=== PATIENT | male | born 1955 | race Caucasian/White ===

== ENCOUNTER 2020-05-25 15:47 | Inpatient (IN) | payer OTHER ==
--- NOTE | 2020-05-25 16:17 | ED ---
General Adult HPI - General Chief complaint: Extremity Injury, Lower Stated complaint: Leg Pain Time Seen by Provider: 05/25/20 15:49 Source: patient Mode of arrival: EMS Limitations: physical limitation - History of Present Illness Initial comments: Patient presents the ED by ambulance for evaluation. Patient states that he has had right knee pain ever since he fell after being pushed over by his neighbor's dog a little over 2 months ago. Patient states that he has been ambulatory with a walker since then. Patient states that his right knee pain is currently 1/10 in severity. Patient states that his pain is worse with ambulation and with extension at his right knee. Patient is noted to have bilateral lower extremity edema on examination. Patient states that he has been unaware that he has had lower extremity edema. Patient denies any other injury or site of pain. Patient denies fever or chills, headache, focal neuro deficit, neck/back/upper extremity/hip pain, chest pain, dyspnea, palpitations, dizziness, nausea/vomiting/diarrhea, abdominal pain, urinary symptoms, decreased urine output, thigh or calf pain, or any other symptoms or complaints. Patient states that he does not see a physician regularly. - Related Data Allergies Allergy/AdvReac Type Severity Reaction Status Date / Time Fish Containing Products AdvReac Nausea & Verified 05/25/20 15:56 [Fish] Vomiting Review of Systems ROS Statement: Those systems with pertinent positive or pertinent negative responses have been documented in the HPI. ROS Other: All systems not noted in ROS Statement are negative. Past Medical History Past Medical History: No Reported History History of Any Multi-Drug Resistant Organisms: None Reported Past Surgical History: Hernia Repair Past Psychological History: No Psychological Hx Reported Smoking Status: Current every day smoker Past Alcohol Use History: Occasional Past Drug Use History: None Reported General Exam Limitations: physical limitation General appearance: alert, in no apparent distress Head exam: Present: atraumatic, normocephalic Eye exam: Present: normal appearance, PERRL, EOMI ENT exam: Present: mucous membranes moist Neck exam: Present: other (Trachea is in midline). Absent: tenderness Respiratory exam: Present: normal lung sounds bilaterally. Absent: respiratory distress, wheezes, rales, rhonchi Cardiovascular Exam: Present: regular rate, normal rhythm, normal heart sounds, other (Normal radial and DP pulses bilaterally) GI/Abdominal exam: Present: soft. Absent: distended, tenderness, guarding Extremities exam: Present: other (2+ bilateral lower pitting edema; negative Homans sign bilaterally; pelvis is stable and nontender; patient has full range of motion at bilateral hips; patient has no right knee swelling, tenderness or deformity on examination; patient has no right knee laxity on exam). Absent: tenderness, calf tenderness Back exam: Absent: tenderness Neurological exam: Present: alert, oriented X3. Absent: motor sensory deficit Psychiatric exam: Present: normal affect, normal mood Skin exam: Present: warm, dry, intact, normal color Course Vital Signs 05/25/20 05/25/20 15:49 17:00 Temperature 100 F H Pulse Rate 97 70 Respiratory 16 18 Rate Blood Pressure 154/99 140/90 O2 Sat by Pulse 97 96 Oximetry - Reevaluation(s) Reevaluation #1: 05/25/20 17:35 Patient denies development of any new pain or symptoms while in the ED. Patient remains alert and breathing comfortable. Patient is aware of his test results, and he feels comfortable going home at this time. Patient was counseled about lower extremity edema and right knee pain (rest, ice, compression, elevation, analgesics). Patient was instructed to follow up closely with a primary care provider, as well as an orthopedic surgeon (given his continued knee pain). Patient feels comfortable with this plan. EKG Findings - EKG Comments: EKG Findings:: Normal sinus rhythm, ventricular rate of 86 bpm, no ectopy, normal [place] and QRS intervals, normal QT interval, normal axis, no ST or T-wave abnormality Medical Decision Making - Medical Decision Making Patient's right knee x-rays are negative. Patient's labs are fairly unremarkable. I suspect that the patient's lower extremity edema is likely dependent and secondary to venous insufficiency. Patient was advised to seek close outpatient follow-up with a PCP, as well as an orthopedic surgeon. ED RN to apply right knee immobilizer prior to patient's discharge from the ED. Patient states that he has a walker at home, which he will use. - Lab Data Result diagrams: 05/25/20 16:21 05/25/20 16:21 Lab Results 05/25/20 05/25/20 05/25/20 Range/Units 16:21 16:21 16:21 WBC 11.9 H (3.8-10.6) k/uL RBC 4.99 (4.30-5.90) m/uL Hgb 16.4 (13.0-17.5) gm/dL Hct 49.2 (39.0-53.0) % MCV 98.6 (80.0-100.0) fL MCH 32.9 (25.0-35.0) pg MCHC 33.3 (31.0-37.0) g/dL RDW 13.7 (11.5-15.5) % Plt Count 191 (150-450) k/uL Neutrophils % 81 % Lymphocytes % 10 % Monocytes % 6 % Eosinophils % 2 % Basophils % 0 % Neutrophils # 9.6 H (1.3-7.7) k/uL Lymphocytes # 1.2 (1.0-4.8) k/uL Monocytes # 0.7 (0-1.0) k/uL Eosinophils # 0.2 (0-0.7) k/uL Basophils # 0.0 (0-0.2) k/uL PT 10.4 (9.0-12.0) sec INR 1.0 (<1.2) APTT 27.8 (22.0-30.0) sec Sodium 136 L (137-145) mmol/L Potassium 4.0 (3.5-5.1) mmol/L Chloride 103 (98-107) mmol/L Carbon Dioxide 27 (22-30) mmol/L Anion Gap 6 mmol/L BUN 12 (9-20) mg/dL Creatinine 0.55 L (0.66-1.25) mg/dL Est GFR (CKD-EPI)AfAm >90 (>60 ml/min/1.73 sqM) Est GFR (CKD-EPI)NonAf >90 (>60 ml/min/1.73 sqM) Glucose 98 (74-99) mg/dL Calcium 9.0 (8.4-10.2) mg/dL Total Bilirubin 1.1 (0.2-1.3) mg/dL AST 21 (17-59) U/L ALT 8 (4-49) U/L Alkaline Phosphatase 81 (38-126) U/L Troponin I (0.000-0.034) ng/mL NT-Pro-B Natriuret Pep pg/mL Total Protein 6.7 (6.3-8.2) g/dL Albumin 3.7 (3.5-5.0) g/dL 05/25/20 05/25/20 Range/Units 16:21 16:21 WBC (3.8-10.6) k/uL RBC (4.30-5.90) m/uL Hgb (13.0-17.5) gm/dL Hct (39.0-53.0) % MCV (80.0-100.0) fL MCH (25.0-35.0) pg MCHC (31.0-37.0) g/dL RDW (11.5-15.5) % Plt Count (150-450) k/uL Neutrophils % % Lymphocytes % % Monocytes % % Eosinophils % % Basophils % % Neutrophils # (1.3-7.7) k/uL Lymphocytes # (1.0-4.8) k/uL Monocytes # (0-1.0) k/uL Eosinophils # (0-0.7) k/uL Basophils # (0-0.2) k/uL PT (9.0-12.0) sec INR (<1.2) APTT (22.0-30.0) sec Sodium (137-145) mmol/L Potassium (3.5-5.1) mmol/L Chloride (98-107) mmol/L Carbon Dioxide (22-30) mmol/L Anion Gap mmol/L BUN (9-20) mg/dL Creatinine (0.66-1.25) mg/dL Est GFR (CKD-EPI)AfAm (>60 ml/min/1.73 sqM) Est GFR (CKD-EPI)NonAf (>60 ml/min/1.73 sqM) Glucose (74-99) mg/dL Calcium (8.4-10.2) mg/dL Total Bilirubin (0.2-1.3) mg/dL AST (17-59) U/L ALT (4-49) U/L Alkaline Phosphatase (38-126) U/L Troponin I <0.012 (0.000-0.034) ng/mL NT-Pro-B Natriuret Pep 405 pg/mL Total Protein (6.3-8.2) g/dL Albumin (3.5-5.0) g/dL - Radiology Data Radiology results: image reviewed (Chest x-ray is negative; right knee x-rays show osteoporosis, but no acute fracture or dislocation) Disposition Clinical Impression: Right knee pain, Lower extremity edema Disposition: HOME SELF-CARE Condition: Stable Instructions (If sedation given, give patient instructions): Knee Pain (ED), Leg Edema (ED) Additional Instructions: Return to the ER immediately should you develop new or worsening pain, a fever, chest pain, shortness of breath, vomiting, feeling dizzy or faint, or new or worsening symptoms. Follow up closely with a primary care provider, as well as an orthopedic surgeon. Is patient prescribed a controlled substance at d/c from ED?: No Referrals: Lucy Mack MD [REFERRING] - 1-2 days None,Stated [Primary Care Provider] - 1-2 days Aamir Barbour DO [Medical Doctor] - 1-2 days Time of Disposition: 17:45
--- NOTE | 2020-05-25 16:32 | XR ---
EXAMINATION TYPE: XR chest 1V portable DATE OF EXAM: 05/25/2020 COMPARISON: NONE HISTORY: Leg pain chest pain TECHNIQUE: FINDINGS: Heart and mediastinum are normal. Lungs are clear. Diaphragm is normal. Bony thorax appears normal. IMPRESSION: Normal chest.
--- NOTE | 2020-05-25 16:34 | XR ---
EXAMINATION TYPE: XR knee 4V RT DATE OF EXAM: 05/25/2020 COMPARISON: NONE HISTORY: Fall. Leg pain TECHNIQUE: 4 views FINDINGS: There is osteopenia around the knee joint. I see no fracture nor dislocation. There is no s ign of joint effusion. 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 No fracture seen.
[2020-05-25 16:35] LABS: Basophils % (A) 0 %; Eosinophils # (A) 0.2 k/uL (0-0.7); Eosinophils % (A) 2 %; HCT 49.2 % (39.0-53.0); HGB 16.4 gm/dL (13.0-17.5); Lymphocytes # (A) 1.2 k/uL (1.0-4.8); Lymphocytes % (A) 10 %; MCH 32.9 pg (25.0-35.0); MCHC 33.3 g/dL (31.0-37.0); MCV 98.6 fL (80.0-100.0); Mean Platelet Volume 6.6; Monocytes # (A) 0.7 k/uL (0-1.0); Monocytes % (A) 6 %; Neutrophils # (A) 9.6 k/uL (1.3-7.7); Neutrophils % (A) 81 %; Platelet Count 191 k/uL (150-450); RBC 4.99 m/uL (4.30-5.90); RDW 13.7 % (11.5-15.5); WBC 11.9 k/uL (3.8-10.6)
[2020-05-25 16:53] LABS: ALT 8 U/L (4-49); AST 21 U/L (17-59); African American GFR (CKD) >90 (>60 ml/min/1.73 sqM); Albumin 3.7 g/dL (3.5-5.0); Alkaline Phosphatase 81 U/L (38-126); Anion Gap 6 mmol/L; Blood Urea Nitrogen 12 mg/dL (9-20); Carbon Dioxide 27 mmol/L (22-30); Chloride 103 mmol/L (98-107); Glucose 98 mg/dL (74-99); Non-African American GFR(CKD) >90 (>60 ml/min/1.73 sqM); Sodium 136 mmol/L (137-145); Total Bilirubin 1.1 mg/dL (0.2-1.3); Total Protein 6.7 g/dL (6.3-8.2)
[2020-05-25 17:08] LABS: Partial Thromboplastin Time 27.8 sec (22.0-30.0); Prothrombin Time 10.4 sec (9.0-12.0)
[2020-05-25] MEDS: ACETAMINOPHEN TAB 325 MG TAB PO PRN (20:54)
[2020-05-26] MEDS: HEPARIN SODIUM,PORCINE 5,000 UNIT/ML 1 ML VIAL SQ SCH ×4 (00:32→23:11)
--- NOTE | 2020-05-26 05:29 | P.HPIM ---
History of Present Illness H&P Date: 05/25/20 The patient is a 65-year-old male with no known PMH who presented to the ED with complaints of right knee pain. The patient is currently homeless and has been staying at a friend's house, living in his garage and occasionally in the main house. He reports that roughly 2 months ago, his friends dog knocked him over, causing the fall and hurt his knee, and that he has not been able to walk since. He was previously using a cane, though is unable to walk even with assistance now. He reports no pain at rest, though reports significant 8-10 out of 10 pain with movement. Reports that since he has not been able to get around, he has been having a really difficult time with food and taking care of himself. He also feels extremely weak. He otherwise denied any additional complaints. Denied weakness of the legs, numbness, or tunneling. Denied back pain. Denied chest pain, shortness of breath, fever, chills, nausea, vomiting, or abdominal pain. Denied urinary complaints. In the emergency room, an EKG revealed a normal sinus rhythm at 86 bpm with no acute ST/T-wave changes noted as reviewed by me. A knee x-ray revealed osteoporosis with no fractures. Chest x-ray was unremarkable. Laboratory evaluation revealed a BP count of 11.9, hemogram and 16.4, platelets 191, sodium 136, potassium 4.0, the 112, creatinine 0.55, troponin less than 0.012, proBNP 405. Review of Systems Pertinent positives and negatives as discussed in HPI, a complete review of s ystems was performed and all other systems are negative. Past Medical History Past Medical History: No Reported History History of Any Multi-Drug Resistant Organisms: None Reported Past Surgical History: Hernia Repair Past Psychological History: No Psychological Hx Reported Smoking Status: Current every day smoker Past Alcohol Use History: Occasional Past Drug Use History: None Reported Medications and Allergies Home Medications Medication Instructions Recorded Confirmed Type No Known Home Medications 05/25/20 05/25/20 History Allergies Allergy/AdvReac Type Severity Reaction Status Date / Time Fish Containing Products AdvReac Nausea & Verified 05/25/20 18:42 [Fish] Vomiting Physical Exam Vitals: Vital Signs Temp Pulse Pulse Resp BP BP Pulse Ox 05/25/20 20:21 98.5 F 93 18 165/89 95 05/25/20 18:33 98.9 F 05/25/20 18:21 98.8 F 92 18 141/93 97 05/25/20 17:48 100 F H 70 18 140/90 96 05/25/20 17:00 70 18 140/90 96 05/25/20 15:49 100 F H 97 16 154/99 97 Intake and Output 05/25/20 05/25/20 05/26/20 14:59 22:59 06:59 Other: Voiding Method Urinal # Voids 0 Weight 72.575 kg General: Disheveled male, non toxic, no distress, appears at stated age, normal weight Derm: Unkempt, warm, dry Head: atraumatic, normocephalic, symmetric Eyes: EOMI, no lid lag, anicteric sclera, pupils equal round reactive to light ENT: Nose and ears atraumatic, no thrush, no pharyngeal erythema Neck: No thyromegaly, no cervical lymphadenopathy, trachea midline, supple Mouth: no lip lesion, mucus membranes moist Cardiovascular: S1S2 reg, no murmur, positive posterior tibial pulse bilateral, 2+ bilateral lower extremity pitting edema, capillary refill less than 2 seconds Lungs: CTA bilateral, no rhonchi, no rales , no accessory muscle use Abdominal: soft, nontender to palpation, no guarding, no appreciable organomegaly, normal bowel sounds Ext: no gross muscle atrophy, LLE strength 4/5, RLE knee strength and range of motion severely limited due to pain, no contractures, no overlying skin changes noted Neuro: CN II-XI grossly intact, light touch intact all 4 extremities, finger to nose within normal limits, Psych: Alert, oriented, appropriate affect Results CBC & Chem 7: 05/25/20 16:21 05/25/20 16:21 Labs: Abnormal Lab Results - Last 24 Hours (Table) 05/25/20 05/25/20 Range/Units 16:21 16:21 WBC 11.9 H (3.8-10.6) k/uL Neutrophils # 9.6 H (1.3-7.7) k/uL Sodium 136 L (137-145) mmol/L Creatinine 0.55 L (0.66-1.25) mg/dL Thrombosis Risk Factor Assmnt - Choose All That Apply Each Risk Factor Represents 2 Points: Age 61-74 years Thrombosis Risk Factor Assessment Total Risk Factor Score: 2 Thrombosis Risk Factor Assessment Level: Low Risk Assessment and Plan Plan: Right knee pain status post trauma -Orthopedic surgery consult -X-ray reviewed -Strict bedrest -Pain control -Physical therapy consult Bilateral lower extremity swelling -Obtain echocardiogram Leukocytosis -No signs of active infection at this time -Monitor CBC for now High blood pressure, possibly secondary to pain from manipulation of the right knee during x-rays etc. 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
[2020-05-26 05:42] LABS: HCT 43.4 % (39.0-53.0); HGB 14.3 gm/dL (13.0-17.5); MCH 32.7 pg (25.0-35.0); MCHC 32.9 g/dL (31.0-37.0); MCV 99.5 fL (80.0-100.0); Platelet Count 172 k/uL (150-450); RBC 4.37 m/uL (4.30-5.90); RDW 13.6 % (11.5-15.5); WBC 13.5 k/uL (3.8-10.6)
[2020-05-26 05:51] LABS: African American GFR (CKD) >90 (>60 ml/min/1.73 sqM); Anion Gap 3 mmol/L; Blood Urea Nitrogen 12 mg/dL (9-20); Calcium 8.5 mg/dL (8.4-10.2); Carbon Dioxide 27 mmol/L (22-30); Chloride 104 mmol/L (98-107); Glucose 91 mg/dL (74-99); Non-African American GFR(CKD) >90 (>60 ml/min/1.73 sqM); Potassium 3.8 mmol/L (3.5-5.1); Sodium 134 mmol/L (137-145)
--- NOTE | 2020-05-26 10:48 | P.CNOR ---
<Souleymane Lopez - Last Filed: 05/26/20 10:48> History of Present Illness - [facility] Consult date: 05/26/20 History of present illness: This patient is a 65-year-old male that presented to [facility] emergency department yesterday via ambulance with complaints of right knee pain. Upon evaluation in the emergency department, x-rays were taken and per radiology report there were no acute findings. Patient was placed into a knee immobilizer and instructed to follow-up with orthopedics on an outpatient basis. Although, patient was found to be homeless so patient was admitted under the care of internal medicine for social work evaluation and a consult to ortho pedics for further workup on his right knee pain. The patient states he injured the knee about 2 months ago. He states the neighbors dog knocked him down. He states he has been experiencing right knee pain since this injury with no improvement. He states he has been unable to walk secondary to the pain. He localizes the pain to the medial knee. He states he lives in a barn in [place] and has been mostly sitting since the injury. He denies numbness, tingling of the right lower extremity. He denies right hip pain. He denies back pain. Patient denies additional complaints at the time of my exam. Past Medical History Past Medical History: No Reported History History of Any Multi-Drug Resistant Organisms: None Reported Past Surgical History: Hernia Repair Past Psychological History: No Psychological Hx Reported Smoking Status: Current every day smoker Past Alcohol Use History: Occasional Past Drug Use History: None Reported Medications and Allergies Home Medications Medication Instructions Recorded Confirmed Type No Known Home Medications 05/25/20 05/25/20 History Allergies Allergy/AdvReac Type Severity Reaction Status Date / Time Fish Containing Products AdvReac Nausea & Verified 05/25/20 18:42 [Fish] Vomiting Physical Examination On examination, the patient is sitting in bed in no apparent distress. He is alert and oriented 3. His head appears normocephalic and atraumatic. His breathing appears nonlabored. On inspection of his bilateral upper extremities, there are no obvious deformities or signs of trauma. On inspection of his bilateral lower extremities, there is a knee immobilizer in place of the right knee. Knee immobilizer is removed and reveals bilateral lower extremity edema. A focused examination of the right knee is conducted. On inspection of the right knee, there is no erythema, ecchymosis, skin discoloration. No open wounds or lacerations. There is a small knee effusion. There is moderate tenderness to palpation of the medial knee. There is no tenderness to palpation of the lateral or anterior knee. No tenderness of the thigh, lower leg, ankle, foot. No pain with passive range of motion of the knee. ACL, PCL, LCL, MCL appear stable. No pain with logrolling of the hip. Patient has good strength and range of motion of the right ankle. Dorsalis pedis pulse +2. Right lower extremity is warm and well-perfused with brisk capillary refill distally. Results Right knee x-ray 05/25/20: Possible non-displaced fracture of the medial tibial plateau. - Labs Labs: Abnormal Lab Results - Last 24 Hours (Table) 05/25/20 05/25/20 05/26/20 Range/Units 16:21 16:21 05:29 WBC 11.9 H 13.5 H (3.8-10.6) k/uL Neutrophils # 9.6 H (1.3-7.7) k/uL Sodium 136 L (137-145) mmol/L Creatinine 0.55 L (0.66-1.25) mg/dL 05/26/20 Range/Units 05:29 WBC (3.8-10.6) k/uL Neutrophils # (1.3-7.7) k/uL Sodium 134 L (137-145) mmol/L Creatinine 0.64 L (0.66-1.25) mg/dL H & H 05/25/20 05/26/20 Range/Units 16:21 05:29 Hgb 16.4 14.3 (13.0-17.5) gm/dL Hct 49.2 43.4 (39.0-53.0) % Coagulation 05/25/20 Range/Units 16:21 INR 1.0 (<1.2) Result Diagrams: 05/26/20 05:29 05/26/20 05:29 Assessment and Plan Assessment: Right knee pain Plan: - Clinical and imaging findings were discussed with the patient. The patient was discussed with Dr. Barbour. Recommended we obtain a computed tomography scan of the right knee to rule out a possible nondisplaced fracture of the medial tibial plateau. - Patient should remain toe-touch weightbearing on the right lower extremity in the current knee immobilizer. Up with assistance, up with a walker. Fall precautions. - Medical management per admitting team. - Further recommendations pending results of the CT scan. Patient discussed with Dr. Barbour. <Aamir Barbour - Last Filed: 05/26/20 13:18> Results - Labs Labs: Abnormal Lab Results - Last 24 Hours (Table) 05/25/20 05/25/20 05/26/20 Range/Units 16:21 16:21 05:29 WBC 11.9 H 13.5 H (3.8-10.6) k/uL Neutrophils # 9.6 H (1.3-7.7) k/uL Sodium 136 L (137-145) mmol/L Creatinine 0.55 L (0.66-1.25) mg/dL 05/26/20 Range/Units 05:29 WBC (3.8-10.6) k/uL Neutrophils # (1.3-7.7) k/uL Sodium 134 L (137-145) mmol/L Creatinine 0.64 L (0.66-1.25) mg/dL H & H 05/25/20 05/26/20 Range/Units 16:21 05:29 Hgb 16.4 14.3 (13.0-17.5) gm/dL Hct 49.2 43.4 (39.0-53.0) % Coagulation 05/25/20 Range/Units 16:21 INR 1.0 (<1.2) Result Diagrams: 05/26/20 05:29 05/26/20 05:29 Assessment and Plan Plan: Case was discussed with MILLI Lopez. Reviewed and agree with above (amendments/corrections noted below). The patient was subsequently seen and examined by me as well. S: The patient states that he fell about 2 months ago. He was attempting to give treats to a dog became excited and jumped on him, causing him to fall onto his hip and right knee. He states there was a sharp ridge in the deck onto which he fell. He was unable to get up after the fall and had to crawl back inside. He has been hobbling around with a walker ever since but previously ambulated with a cane (secondary to back pain). He localizes the pain to the back and anteromedial aspects of the knee He is a current smoker (~1/2 ppd). O: The patient is pleasantly interactive and answers questions appropriately. He appears disheveled and malnourished. Right knee: Small effusion. No abrasions or ecchymosis. Moderate point tenderness over the anteromedial tibial plateau. Mild joint line tenderness bilaterally. Pain with passive flexion (fairly guarded on exam). No gross collateral instability. Flexion contractures of both knees (~20) - the patient states these are chronic. Moderately severe edema in both feet and legs. Imaging: X-rays of the right knee demonstrate a very subtle vertical lucency e xtending into the medial tibial plateau. No definitive extension out the metaphysis. No articular step-off. Moderate degenerative changes. A: Right knee pain status post fall -- likely subacute nondisplaced medial tibial plateau fracture. Nicotine addiction/tobacco abuse. P: I reviewed the clinical and x-ray findings in detail with the patient. His exam and imaging are consistent with a nondisplaced fracture. I recommended further diagnostic evaluation with a CT scan. The knee immobilizer may be removed at rest but should be applied for ambulation. For now, he should remain touchdown weightbearing with a walker. Up with assist only. Fall precautions. Continue PRN pain management with ice and topical/oral analgesics as needed. Questions were invited and answered; the patient expressed understanding and agreement with the plan as outlined above. Further recommendations to follow. Thank you for allowing us to participate in the care of this patient. Aamir Barbour D.O. [facility]
--- NOTE | 2020-05-26 11:16 | CT ---
EXAMINATION TYPE: CT knee RT wo con DATE OF EXAM: 05/26/2020 COMPARISON: X-ray 05/25/2020 HISTORY: Rt knee pain CT DLP: 117.5 mGycm Automated exposure control for dose reduction was used. FINDINGS: There is diffuse osteopenia. Narrowing of the knee joint seen compatible with arthritic change. Small suprapatellar bursal fluid collection is seen is a small amount of fluid posterior to the knee joint . No acute fracture. No dislocation. Small rounded cystic lucencies involving the articular surface a nd fever. IMPRESSION: 1. NO ACUTE FRACTURE. 2. ARTHROPATHY ARTHROPATHY. THERE IS A SMALL AMOUNT OF FLUID IN THE SUPRAPATELLAR BURSA AND POSTERIOR TO THE KNEE JOINT. SEVERE DIFFUSE OSTEOPENIA WITH MULTIPLE SMALL LUCENCIES SEEN INVOLVING THE DISTAL MARGIN OF THE FEMUR AND PROXIMAL TIBIA. THIS COULD BE ON THE BASIS OF SEVERE OSTEOPENIA, HOWEVER, MR I IS RECOMMENDED FOR FURTHER EVALUATION TO EXCLUDE OTHER ETIOLOGIES.
[2020-05-26] MEDS ORDERED: NALOXONE 0.4 MG/ML 1 ML VIAL IV PRN (14:02)
[2020-05-26] MEDS ORDERED: HYDROcodone/APAP 5-325MG 1 EACH TAB PO PRN (14:02)
--- NOTE | 2020-05-26 14:06 | P.PN ---
Subjective Progress Note Date: 05/26/20 Patient was seen and examined. No acute events overnight. Patient continues to report right knee pain, 8 out of 10 in severity. He denies any chest pain, shortness breath or palpitations. No nausea or vomiting. No fever or chills. Objective - Vital Signs Vital signs: Vital Signs Temp 99.3 F 05/26/20 07:17 Pulse 95 05/26/20 07:17 Resp 16 05/26/20 07:17 BP 136/72 05/26/20 07:17 Pulse Ox 95 05/26/20 07:17 Intake & Output 05/25/20 05/26/20 05/26/20 18:59 06:59 18:59 Intake Total 600 Output Total 200 Balance 600 -200 Weight 72.575 kg Intake: Oral 600 Output: Urine 200 Other: Voiding Method Urinal Urinal Urinal # Voids 0 350 # Bowel Movements 1 - Exam General: [non toxic], [no distress], [appears at stated age], [disheveled] Derm: [warm], [dry] Head: [atraumatic], [normocephalic], [symmetric] Eyes: [EOMI], [no lid lag], [anicteric sclera] Mouth: [no lip lesion], [mucus membranes moist] Cardiovascular: [S1S2 reg], [no murmur] Lungs: [CTA bilateral], [no rhonchi, no rales] , [no accessory muscle use] Abdominal: [soft], [ nontender to palpation], [no guarding], [no appreciable organomegaly] Neuro: [no focal neuro deficits] Psych: [Alert], [oriented], [appropriate affect] - Labs CBC & Chem 7: 05/26/20 05:29 05/26/20 05:29 Labs: Abnormal Lab Results - Last 24 Hours (Table) 05/25/20 05/25/20 05/26/20 Range/Units 16:21 16:21 05:29 WBC 11.9 H 13.5 H (3.8-10.6) k/uL Neutrophils # 9.6 H (1.3-7.7) k/uL Sodium 136 L (137-145) mmol/L Creatinine 0.55 L (0.66-1.25) mg/dL 05/26/20 Range/Units 05:29 WBC (3.8-10.6) k/uL Neutrophils # (1.3-7.7) k/uL Sodium 134 L (137-145) mmol/L Creatinine 0.64 L (0.66-1.25) mg/dL Assessment and Plan Assessment: Right knee pain status post trauma -Orthopedic surgery consult -CT of the knee shows arthropathy, diffuse osteopenia and multiple small lucencies seen involving the distal margin of the femur and proximal tibia. -Strict bedrest -Pain control, add [place] -Physical therapy consult Bilateral lower extremity swelling -Obtain echocardiogram Leukocytosis -No signs of active infection at this time -Monitor CBC for now High blood pressure, possibly secondary to pain from manipulation of the right knee during x-rays etc. 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 He is nonweightbearing. Homeless. Will need discharge planning with social work and case management. Orthopedic surgery on board for possible fracture]
[2020-05-26] MEDS: ACETAMINOPHEN TAB 325 MG TAB PO PRN (14:24)
[2020-05-27 06:56] LABS: Basophils % (A) 1 %; Eosinophils # (A) 0.3 k/uL (0-0.7); Eosinophils % (A) 3 %; HCT 41.5 % (39.0-53.0); HGB 13.5 gm/dL (13.0-17.5); Lymphocytes # (A) 1.2 k/uL (1.0-4.8); Lymphocytes % (A) 14 %; MCH 32.5 pg (25.0-35.0); MCHC 32.5 g/dL (31.0-37.0); Mean Platelet Volume 6.6; Monocytes # (A) 0.6 k/uL (0-1.0); Monocytes % (A) 6 %; Neutrophils # (A) 6.5 k/uL (1.3-7.7); Neutrophils % (A) 74 %; Platelet Count 177 k/uL (150-450); RBC 4.15 m/uL (4.30-5.90); RDW 13.7 % (11.5-15.5); WBC 8.8 k/uL (3.8-10.6)
[2020-05-27 07:09] LABS: ALT <6 U/L (4-49); AST 16 U/L (17-59); African American GFR (CKD) >90 (>60 ml/min/1.73 sqM); Albumin 2.8 g/dL (3.5-5.0); Alkaline Phosphatase 58 U/L (38-126); Anion Gap 5 mmol/L; Blood Urea Nitrogen 10 mg/dL (9-20); Calcium 8.2 mg/dL (8.4-10.2); Carbon Dioxide 25 mmol/L (22-30); Chloride 105 mmol/L (98-107); Glucose 77 mg/dL (74-99); Non-African American GFR(CKD) >90 (>60 ml/min/1.73 sqM); Potassium 3.7 mmol/L (3.5-5.1); Sodium 135 mmol/L (137-145); Total Protein 5.4 g/dL (6.3-8.2)
[2020-05-27] MEDS: HEPARIN SODIUM,PORCINE 5,000 UNIT/ML 1 ML VIAL SQ SCH ×3 (08:09→23:01)
--- NOTE | 2020-05-27 09:25 | P.PN ---
Subjective Progress Note Date: 05/27/20 This patient is a 65-year-old male that presented to [facility] emergency department yesterday via ambulance with complaints of right knee pain. Upon evaluation in the emergency department, x-rays were taken and per radiology report there were no acute findings. Patient was placed into a knee immobilizer and instructed to follow-up with orthopedics on an outpatient basis. Although, patient was found to be homeless so patient was admitted under the care of internal medicine for social work evaluation and a consult to orthopedics for further workup on his right knee pain. The patient states he injured the knee about 2 months ago. He states the neighbors dog knocked him down. He states he has been experiencing right knee pain since this injury with no improvement. He states he has been unable to walk secondary to the pain. He localizes the pain to the medial knee. He states he lives in a barn in [place] and has been mostly sitting since the injury. He denies numbness, tingling of the right lower extremity. He denies right hip pain. He denies back pain. Patient denies additional complaints at the time of my exam. 05/27/20: Patient is seen and examined bedside this morning. Patient states his knee pain feels similar to yesterday. PT and social work are currently in the room with the patient. He is currently remaining toe touch weight bearing of the right lower extremity. CT scan obtained yesterday revealed no fractures, small lucencies of the distal femur and proximal tibia. There are no new complaints today. Objective - Vital Signs Vital signs: Vital Signs Temp 97.7 F 05/27/20 08:07 Pulse 82 05/27/20 08:27 Resp 16 05/27/20 08:27 BP 136/80 05/27/20 08:07 Pulse Ox 94 L 05/27/20 08:07 Intake & Output 05/26/20 05/27/20 05/27/20 18:59 06:59 18:59 Intake Total 100 100 Output Total 350 700 550 Balance -350 -600 -450 Intake: Oral 100 100 Output: Urine 350 300 150 Stool 400 400 Other: Voiding Method Urinal Urinal Urinal # Voids 3 3 # Bowel Movements 1 1 - Exam On examination, the patient is sitting in bed in no apparent distress. He is alert and oriented 3. A focused examination of the right knee is conducted. On inspection of the right knee, there is no erythema, ecchymosis, skin discoloration. No open wounds or lacerations. There is a small knee effusion. There is moderate diffuse tenderness about the knee. No tenderness of the thigh, lower leg, ankle, foot. Mild pain with passive range of motion of the knee. No gross instability of the knee. Patient has good strength and range of motion of the right ankle. Dorsalis pedis pulse +2. Right lower extremity is warm and well-perfused with brisk capillary refill distally. Bilateral lower extremity edema noted. Non-tender to palpation of the right calf. - Labs CBC & Chem 7: 05/27/20 05:44 05/27/20 05:44 Labs: Abnormal Lab Results - Last 24 Hours (Table) 05/27/20 05/27/20 Range/Units 05:44 05:44 RBC 4.15 L (4.30-5.90) m/uL Sodium 135 L (137-145) mmol/L Creatinine 0.63 L (0.66-1.25) mg/dL Calcium 8.2 L (8.4-10.2) mg/dL AST 16 L (17-59) U/L Total Protein 5.4 L (6.3-8.2) g/dL Albumin 2.8 L (3.5-5.0) g/dL Assessment and Plan Assessment: Right knee pain Plan: - Clinical and imaging findings were discussed with the patient. The patient was discussed with Dr. Barbour. We will obtain an MRI of the right knee to further assess the lucencies of the distal femur and proximal tibia. - Patient should remain toe-touch weightbearing on the right lower extremity in the current knee immobilizer. Knee immobilizer may be removed at rest. Up with assistance, up with a walker. Fall precautions. - Medical management per admitting team. - Further recommendations pending MRI. Patient discussed with Dr. Barbour.
--- NOTE | 2020-05-27 13:25 | ECHOF ---
Referral Reason:LE swelling MEASUREMENTS -------- HEIGHT: 185.4 cm WEIGHT: 72.6 kg BP: 137/55 RVIDd: 3.6 cm (< 3.3) IVSd: 1.4 cm (0.6 - 1.1) LVIDd: 4.1 cm (3.9 - 5.3) LVPWd: 1.1 cm (0.6 - 1.1) IVSs: 1.7 cm LVIDs: 3.0 cm LVPWs: 1.8 cm LA Diam: 3.3 cm (2.7 - 3.8) Ao Diam: 3.6 cm (2.0 - 3.7) AV Cusp: 2.5 cm (1.5 - 2.6) MV EXCURSION: 22.486 mm (> 18.000) MV EF SLOPE: 60 mm/s (70 - 150) EPSS: 0.7 cm MV E Sin: 0.46 m/s MV DecT: 220 ms MV A Sin: 0.79 m/s MV E/A Ratio: 0.59 RAP: 5.00 mmHg RVSP: 23.84 mmHg FINDINGS -------- Sinus rhythm. This was a technically difficult study with suboptimal views. Pt. not able to turn due to pain. The left ventricular size is normal. There is mild concentric left ventricular hypertrophy. Overa ll left ventricular systolic function is normal with, an EF between 55 - 60 %. The right ventricle is mildly enlarged. Normal LA size by volume 22+/-6 ml/m2. The right atrium was not well visualized. 5.0mg of Lumason was utilized for enhancement of images Interatrial and interventricular septum intact. The aortic valve is trileaflet, and appears structurally normal. No aortic stenosis or regurgitation. The mitral valve is normal. No mitral regurgitation. Mild tricuspid regurgitation present. There is no evidence of pulmonary hypertension. The right v entricular systolic pressure, as measured by Doppler, is 23.84mmHg. The pulmonic valve was not well visualized. There is no pulmonic regurgitation present. The aortic root size is normal. The ascending aorta is dilated measuring up to {4 cm}. IVC Not well visulized. There is no pericardial effusion. CONCLUSIONS -------- 1. There is mild concentric left ventricular hypertrophy. 2. Overall left ventricular systolic function is normal with, an EF between 55 - 60 %. 3. The right ventricle is mildly enlarged. 4. Normal LA size by volume 22+/-6 ml/m2. 5. The aortic valve is trileaflet, and appears structurally normal. No aortic stenosis or regurgitati on. 6. Mild tricuspid regurgitation present. 7. The ascending aorta is dilated measuring up to {4 cm}. 8. There is no pericardial effusion. FRETTED INSTRUMENT INSPECTOR: Teri Lema RDCS
--- NOTE | 2020-05-27 16:35 | P.PN ---
Subjective Progress Note Date: 05/27/20 Patient was seen and examined. No acute events overnight. Patient appears well for right knee pain especially when bearing weight. He has no other complaints. Objective - Vital Signs Vital signs: Vital Signs Temp 98.0 F 05/27/20 14:51 Pulse 68 05/27/20 14:51 Resp 18 05/27/20 14:51 BP 108/72 05/27/20 14:51 Pulse Ox 96 05/27/20 14:51 Intake & Output 05/26/20 05/27/20 05/27/20 18:59 06:59 18:59 Intake Total 100 100 Output Total 350 700 900 Balance -350 -600 -800 Intake: Oral 100 100 Output: Urine 350 300 300 Stool 400 600 Other: Voiding Method Urinal Urinal Urinal # Voids 3 1 # Bowel Movements 1 1 1 - Exam General: [non toxic], [no distress], [appears at stated age], [disheveled] Derm: [warm], [dry] Head: [atraumatic], [normocephalic], [symmetric] Eyes: [EOMI], [no lid lag], [anicteric sclera] Mouth: [no lip lesion], [mucus membranes moist] Cardiovascular: [S1S2 reg], [no murmur] Lungs: [CTA bilateral], [no rhonchi, no rales] , [no accessory muscle use] Abdominal: [soft], [ nontender to palpation], [no guarding], [no appreciable organomegaly] Neuro: [no focal neuro deficits] Psych: [Alert], [oriented], [appropriate affect] - Labs CBC & Chem 7: 05/27/20 05:44 05/27/20 05:44 Labs: Abnormal Lab Results - Last 24 Hours (Table) 05/27/20 05/27/20 Range/Units 05:44 05:44 RBC 4.15 L (4.30-5.90) m/uL Sodium 135 L (137-145) mmol/L Creatinine 0.63 L (0.66-1.25) mg/dL Calcium 8.2 L (8.4-10.2) mg/dL AST 16 L (17-59) U/L Total Protein 5.4 L (6.3-8.2) g/dL Albumin 2.8 L (3.5-5.0) g/dL Assessment and Plan Assessment: Right knee pain status post trauma -Orthopedic surgery consult -MRI knee pending -Patient should be toe-touch weightbearing -CT of the knee shows arthropathy, diffuse osteopenia and multiple small lucencies seen involving the distal margin of the femur and proximal tibia. -Strict bedrest -Pain control, add [place] -Physical therapy consult Bilateral lower extremity swelling -Echocardiogram shows EF 55-60% -Advised lower extremity elevation High blood pressure, possibly secondary to pain from manipulation of the right knee during x-rays etc. 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 Homeless. Will need discharge planning with social work and case management which is in progress. DC when found placement.]
--- NOTE | 2020-05-27 17:12 | MR ---
EXAMINATION TYPE: MR knee RT wo con DATE OF EXAM: 05/27/2020 COMPARISON: HISTORY: Rt knee pain, R/O fracture Multiplanar multiecho imaging of the right knee was performed without contrast. There is moderate size knee joint effusion. Exam limited slightly by motion. There is horizontal tear through the posterior horn of the medial meniscus extending to the inferior surface. Lateral meniscu s appears intact. The anterior and posterior cruciate ligaments are intact. I see no bony destructive process. There is no evidence of a fracture line. Patella is intact. There is mild subcutaneous juanito a around the knee. The collateral ligaments appear intact. IMPRESSION: Horizontal tear of the posterior horn medial meniscus. Moderate knee joint effusion. No evidence of ligamentous tear. No fracture line seen.
[2020-05-28] MEDS: ACETAMINOPHEN TAB 325 MG TAB PO PRN ×2 (02:17→18:51)
[2020-05-28] MEDS: HEPARIN SODIUM,PORCINE 5,000 UNIT/ML 1 ML VIAL SQ SCH ×3 (07:50→23:37)
--- NOTE | 2020-05-28 08:43 | P.PN ---
Subjective Progress Note Date: 05/28/20 Principal diagnosis: Right knee pain This patient is a 65-year-old male that presented to [facility] emergency department on Wednesday via ambulance with complaints of right knee pain. Upon evaluation in the emergency department, x-rays were taken and per radiology report there were no acute findings. Patient was placed into a knee immobilizer and instructed to follow-up with orthopedics on an outpatient basis. Although, patient was found to be homeless so patient was admitted under the care of internal medicine for social work evaluation and a consult to orthope dics for further workup on his right knee pain. The patient states he injured the knee about 2 months ago. He states the neighbors dog knocked him down. He states he has been experiencing right knee pain since this injury with no improvement. He states he has been unable to walk secondary to the pain. He localizes the pain to the medial knee. He states he lives in a barn in [place] and has been mostly sitting since the injury. He denies numbness, tingling of the right lower extremity. He denies right hip pain. He denies back pain. Patient denies additional complaints at the time of my exam. 05/27/20: Patient is seen and examined bedside this morning. Patient states his knee pain feels similar to yesterday. PT and social work are currently in the room with the patient. He is currently remaining toe touch weight bearing of the right lower extremity. CT scan obtained yesterday revealed no fractures, small lucencies of the distal femur and proximal tibia. There are no new complaints today. 05/28/2020: The patient was seen this morning. No new complaints today. He states the knee pain is about the same without much improvement since admission. He is unable to straighten the knee and when he tries to straighten the knee, there is pain on the posterior side. Most of the pain is on the inside of the knee. An MRI was completed yesterday and revealed a medial meniscus tear. No fractures. He remains toe touch weightbearing with knee immobilizer when up. The patient has only taken Tylenol for pain since admission. Objective - Vital Signs Vital signs: Vital Signs Temp 98.2 F 05/28/20 07:57 Pulse 80 05/28/20 07:59 Resp 16 05/28/20 07:57 BP 128/73 05/28/20 07:57 Pulse Ox 96 05/28/20 07:57 Intake & Output 05/27/20 05/28/20 05/28/20 18:59 06:59 18:59 Intake Total 400 Output Total 900 160 Balance -500 -160 Intake: Oral 400 Output: Urine 300 160 Stool 600 Other: Voiding Method Urinal Urinal # Voids 1 1 # Bowel Movements 1 - Exam On examination, the patient is sitting in bed in no apparent distress. He is alert and oriented 3. A focused examination of the right knee is performed. On inspection of the right knee, there is no erythema, ecchymosis, skin discoloration. No open wounds or lacerations. There is a small knee effusion. There is moderate diffuse tenderness about the medial knee. No tenderness of the thigh, lower leg, ankle, foot. Mild pain with passive range of motion of the knee. No gross instability of the knee. Patient has good strength and range of motion of the right ankle. Dorsalis pedis pulse +2. Right lower extremity is warm and well-perfused with brisk capillary refill distally. Bilateral lower extremity edema noted. Non-tender to palpation of the right calf. - Labs CBC & Chem 7: 05/27/20 05:44 05/27/20 05:44 Assessment and Plan (1) Right knee pain Current Visit: Yes Status: Acute Code(s): M25.561 - PAIN IN RIGHT KNEE SNOMED Code(s): 90205751 Plan: The clinical and MRI findings were discussed with the patient. The patient was discussed with Dr. Barbour. The patient can weightbear as tolerated on the right lower extremity in the current knee immobilizer. Knee immobilizer may be removed at rest. Up with a walker or cane as needed. Medical management per admitting team. Social work is working on placement options. The patient may discharge today from an orthopedic standpoint with outpatient follow up in our office. Continue Tylenol for pain.
--- NOTE | 2020-05-28 18:29 | P.PN ---
Subjective Progress Note Date: 05/28/20 (delayed charting seen at 0920) Principal diagnosis: right leg pain Patient is a 65-year-old male with no known past medical history who presented to the emergency department with complaints of right knee pain, he states that he fell approximately 2 months ago and has not been able to walk since secondary to pain. On arrival to the ER he had a mildly elevated temperature at 100, blood pressure 154/99, 97% on room air. Laboratory analysis showed a white blood cell, 11.9, sodium 136, BUN 12, creatinine 0.55, troponin was normal. Chest x-ray in the ER showed no acute process, 4 view knee x-ray showed a juxta- articular osteoporosis but no fracture. He was subsequently placed in observation for right knee pain, bilateral lower extremity swelling, and leukocytosis. Orthopedic surgery was consulted. They were concerned about possible subacute nondisplaced medial left tibial plateau fracture and subsequently ordered a computed tomography scan. CT of the knee was performed which showed no acute fracture but arthropathy with small amount of fluid in the suprapatellar bursa and posterior tibial knee with severe osteopenia and multiple small lucency. Patient was seen by physical therapy and reported right knee pain worse with movement, he was noted to have decreased right knee extension and required assistance to maintain toe-touch weight-bear on the right lower extremity with standing. Patient was unable to ambulate secondary to weakness. He underwent an echocardiogram to his lower extremity edema which showed an ejection fraction of 55-60%. He underwent an MRI of the knee which shows a horizontal tear of the posterior horn of the medial meniscus with a moderate knee joint effusion but no evidence of ligamentous tear and no fracture. He was re-seen by orthopedic surgery who recommended weightbearing as tolerated on the right lower extremity with knee immobilizer, cane or walker as needed when up with ambulation and outpatient follow-up. Patient was still unable to ambulate on his own secondary to pain and therefore arrangements are being made for long-term care facility. Patient seen and examined at bedside. He continues to have right knee pain. He denies any chest pain, shortness breath, nausea, or vomiting. We discussed that his medial meniscus tear does not require continued hospitalization and that as soon as arrangements can be made for a safe discharge will be discharged. General: non toxic, no distress, appears older than stated age, disheveled Derm: warm, dry Head: atraumatic, normocephalic, symmetric Eyes: EOMI, no lid lag, anicteric sclera Mouth: no lip lesion, mucus membranes moist Cardiovascular: S1S2 reg, no murmur, positive posterior tibial pulse bilateral, Lungs: CTA bilateral, no rhonchi, no rales , no accessory muscle use Abdominal: soft, nontender to palpation, no guarding, no appreciable organomegaly Ext: no gross muscle atrophy, 2+edema RLE , no contractures Neuro: CN II-XI grossly intact, no focal neuro deficits Psych: Alert, oriented, appropriate affect Right knee pain secondary to medial meniscal tear with effusion - ortho recs appreciated -Immobilizer when up and ambulating -Weight-bear as tolerated -Outpatient follow-up with orthopedic surgery -Continue with Tylenol as needed for pain Tobacco abuse -Cessation Debility with inability to ambulate secondary to pain -PT/OT -Plan is for long-term care discharge Bilateral lower extremity edema-improving -Echocardiogram within normal limits -Continue with elevation Leukocytosis, resolved Social stressor-homelessness Elevated blood pressure on admission, normalized Tentative discharge patient however need COVID test resulted prior to discharge. Currently awaiting results Objective - Vital Signs Vital signs: Vital Signs Temp 97.8 F 05/28/20 14:33 Pulse 72 05/28/20 14:33 Resp 16 05/28/20 14:33 BP 119/72 05/28/20 14:33 Pulse Ox 98 05/28/20 14:33 Intake & Output 05/27/20 05/28/20 05/28/20 18:59 06:59 18:59 Intake Total 400 Output Total 900 160 600 Balance -500 -160 -600 Intake: Oral 400 Output: Urine 300 160 600 Stool 600 Other: Voiding Method Urinal Urinal # Voids 1 1 1 # Bowel Movements 1 - Labs CBC & Chem 7: 05/27/20 05:44 05/27/20 05:44
[2020-05-29 07:14] VITALS: BP 128/78; PULSE 74; RESP 15; TEMP 98.7
[2020-05-29] MEDS: HEPARIN SODIUM,PORCINE 5,000 UNIT/ML 1 ML VIAL SQ SCH (08:30)
--- NOTE | 2020-05-29 10:07 | P.DS ---
Providers Date of admission: 05/27/20 08:13 Expected date of discharge: 05/29/20 Attending physician: Jimi Jhaveri MD Consults: 05/26/20 03:12 Consult Physician Routine Consulting Provider: Aamir Barbour Consult Reason/Comments: Right Knee OA Do you want consulting provider notified?: Yes, Notify in am Primary care physician: Stated None Hospital Course: Discharge Diagnosis: Right knee pain secondary to medial meniscal tear with effusion Tobacco abuse Debility with inability to ambulate secondary to pain Bilateral lower extremity edema-improving Leukocytosis, resolved Social stressor-homelessness Hospital Course: Patient is a 65-year-old male with no known past medical history who presented to the emergency department with complaints of right knee pain, he states that he fell approximately 2 months ago and has not been able to walk since secondary to pain. On arrival to the ER he had a mildly elevated temperature at 100, blood pressure 154/99, 97% on room air. Laboratory analysis showed a white blood cell, 11.9, sodium 136, BUN 12, creatinine 0.55, troponin was normal. Chest x-ray in the ER showed no acute process, 4 view knee x-ray showed a juxta- articular osteoporosis but no fracture. He was subsequently placed in observation for right knee pain, bilateral lower extremity swelling, and l eukocytosis. Orthopedic surgery was consulted. They were concerned about possible subacute nondisplaced medial left tibial plateau fracture and subsequently ordered a computed tomography scan. CT of the knee was performed which showed no acute fracture but arthropathy with small amount of fluid in the suprapatellar bursa and posterior tibial knee with severe osteopenia and multiple small lucency. Patient was seen by physical therapy and reported right knee pain worse with movement, he was noted to have decreased right knee extension and required assistance to maintain toe-touch weight-bear on the right lower extremity with standing. Patient was unable to ambulate secondary to weakness. He underwent an echocardiogram to his lower extremity edema which showed an ejection fraction of 55-60%. He underwent an MRI of the knee which shows a horizontal tear of the posterior horn of the medial meniscus with a moderate knee joint effusion but no evidence of ligamentous tear and no fractur e. He was re-seen by orthopedic surgery who recommended weightbearing as tolerated on the right lower extremity with knee immobilizer, cane or walker as needed when up with ambulation and outpatient follow-up. He was unable to ambulate independently and arrangements were made for discharge to residential. Patient seen and examined at bedside. No chest pain, SOB, or nausea, pain is manageable at this time. Vital signs reviewed and stable. General: non toxic, no distress, appears at stated age Derm: warm, dry Head: atraumatic, normocephalic, symmetric Eyes: EOMI, no lid lag, anicteric sclera Mouth: no lip lesion, mucus membranes moist Cardiovascular: S1S2 reg, no murmur, positive posterior tibial pulse bilateral, Lungs: CTA bilateral, no rhonchi, no rales , no accessory muscle use Psych: Alert, oriented, appropriate affect A total of 35 minutes of time were spent preparing this complex discharge summary. Patient Condition at Discharge: Stable Plan - Discharge Summary New Discharge Prescriptions: New Acetaminophen Tab [Tylenol] 650 mg PO Q6HR PRN tab PRN Reason: Fever And/ Or Pain Discharge Medication List Acetaminophen Tab [Tylenol] 650 mg PO Q6HR PRN tab 05/28/20 [Rx] Follow up Appointment(s)/Referral(s): [facility] [NON-STAFF] - 1-2 Days Jace Lew MD [STAFF PHYSICIAN] - As Needed Patient Instructions/Handouts: Leg Edema (ED), Knee Pain (ED) Activity/Diet/Wound Care/Special Instructions: Activity: weight bear as tolerated Knee immobilizer when walking Diet: regular Special Instructions: follow-up with ortho Discharge Disposition: TRANSFER TO SNF/ECF
== END 2020-05-29 14:15 | DRG 563 ==
LOC: EC 15:47 → 1SOBS 18:10 → OBSVTOIN 05-27 08:13 → 4SSUR 05-28 19:16
PROVIDERS: ADMIT Family Medicine; ATTEND Family Medicine
DX: S83.241A Other tear of medial meniscus, current injury, right knee, initial encounter (principal); F17.200 Nicotine dependence, unspecified, uncomplicated; M17.11 Unilateral primary osteoarthritis, right knee; R60.0 Localized edema; M25.461 Effusion, right knee; R53.81 Other malaise; R03.0 Elevated blood-pressure reading, without diagnosis of hypertension; Z20.828 Contact with and (suspected) exposure to other viral communicable diseases; D72.829 Elevated white blood cell count, unspecified; M81.0 Age-related osteoporosis without current pathological fracture; F43.9 Reaction to severe stress, unspecified; Z91.013 Allergy to seafood; Z98.890 Other specified postprocedural states; Z59.0 Homelessness; Z91.81 History of falling
CPT/HCPCS: 36415; 71045; 80048; 80053; 83880; 84484; 85025; 85027; 85610; 85730; 93005; 93306; 99285

== ENCOUNTER 2025-02-28 17:17 | Inpatient (IN) | payer MEDICARE, OTHER ==
--- NOTE | 2025-02-28 17:40 | ED ---
General Adult HPI - General Chief complaint: Weakness Stated complaint: weakness Time Seen by Provider: 02/28/25 17:17 Source: patient, EMS Mode of arrival: EMS - History of Present Illness Initial comments: Dictation was produced using [employer] dictation software. please excuse any g rammatical, word or spelling errors. Chief Complaint: 70-year-old male presents to the emergency department weakness History of Present Illness: Patient 70-year-old male presents with 10 days of weakness. Patient denies any medical problems. Patient allegedly had EMS called after he was unable to get out of his couch. Apparently he was on his couch for 10 days straight. Upon EMS arrival they noticed he was covered in stool. Patient denies any medical comorbidities and has not used tobacco or alcohol or any other drugs. The ROS documented in this emergency department record has been reviewed and confirmed by me. Those systems with pertinent positive or negative responses have been documented in the HPI. All other systems are other negative and/or noncontributory. - Related Data Previous Rx's Medication Instructions Recorded Acetaminophen Tab [Tylenol] 650 mg PO Q6HR PRN tab 05/28/20 Allergies Allergy/AdvReac Type Severity Reaction Status Date / Time Fish Containing Products AdvReac Nausea & Verified 02/28/25 17:37 [Fish] Vomiting Review of Systems ROS Statement: Those systems with pertinent positive or pertinent negative responses have been documented in the HPI. ROS Other: All systems not noted in ROS Statement are negative. Past Medical History Past Medical History: No Reported History History of Any Multi-Drug Resistant Organisms: None Reported Past Surgical History: Hernia Repair Past Psychological History: No Psychological Hx Reported Smoking Status: Current every day smoker Past Alcohol Use History: Occasional Past Drug Use History: None Reported General Exam - General Exam Comments Initial Comments: PHYSICAL EXAM: General Impression: Alert and oriented x3, not in acute distress, disheveled, cachectic, covered in stool HEENT: Normocephalic atraumatic, extra-ocular movements intact, pupils equal and reactive to light bilaterally, mucous membranes moist. Cardiovascular: Heart regular rate and rhythm Chest: Able to complete full sentences, no retractions, no tachypnea Abdomen: abdomen soft, non-tender, non-distended, no organomegaly Musculoskeletal: Pulses present and equal in all extremities, no peripheral rahat ma Motor: no focal deficits noted Neurological: CN II-XII grossly intact, no focal motor or sensory deficits noted Skin: Intact with no visualized rashes Psych: Normal affect and mood Course Vital Signs 02/28/25 17:20 Temperature 97.8 F Pulse Rate 81 Respiratory 18 Rate Blood Pressure 112/81 O2 Sat by Pulse 100 Oximetry EKG Findings - EKG Comments: EKG Findings:: My EKG interpretation: Ventricular rate 69, sinus rhythm, SC 175, QRS 102, QTc 454. No SC prolongation, no QTC prolongation, no ST or T-wave changes noted. Medical Decision Making - Medical Decision Making Was pt. sent in by a medical professional or institution (, PA, MEMORIAL MARKER DESIGNER, urgent care, hospital, or care home...) When possible be specific @ -No Did you speak to anyone other than the patient for history (EMS, parent, family, police, friend...)? What history was obtained from this source @ -EMS as described above Did you review nursing and triage notes (agree or disagree)? Why? @ -I reviewed and agree with nursing and triage notes Were old charts reviewed (outside hosp., previous admission, EMS record, old EKG, old radiological studies, urgent care reports/EKG's, care home records)? Report findings @ -No old charts were reviewed Differential Diagnosis (chest pain, altered mental status, abdominal pain women, abdominal pain men, vaginal bleeding, musculoskeletal, weakness, fever, dyspnea, syncope, headache, dizziness, GI bleed, back pain, seizure, CVA, palpatations, mental health)? @ -Differential Weakness: Hypoglycemia, shock, sepsis, hyponatremia, anemia, infection, OH, ETOH, adverse medicine reaction, overdose, stroke, this is not meant to be an all-inclusive list. EKG interpreted by me (3pts min.). @ -See above X-rays interpreted by me (1pt min.). @ -Chest x-ray shows no acute processes CT interpreted by me (1pt min.). @ -CT brain shows no acute processes U/S interpreted by me (1pt. min.). @ -None done What testing was considered but not performed or refused? (CT, X-rays, U/S, labs)? Why? @ -None What meds were considered but not given or refused? Why? @ -None Was smoking cessation discussed for >3mins.? @ -No Were there social determinants of health that impacted care today? How? (Homeles sness, low income, unemployed, alcoholism, drug addiction, transportation, low edu. Level, literacy, decrease access to med. care, [facility], rehab)? @ -Poor social support Was there de-escalation of care discussed even if they declined (Discuss DNR or withdrawal of care, Hospice)? DNR status @ -No What co-morbidities impacted this encounter? (DM, HTN, Smoking, COPD, CAD, Cancer, CVA, ARF, Chemo, Hep., AIDS, mental health diagnosis, sleep apnea, morbid obesity)? @ -None Was patient admitted / discharged? Hospital course, mention meds given and route, prescriptions, significant lab abnormalities, going to OR and other pertinent info. @ -70-year-old male presents emergency department after covered in stool and too weak to perform his activities of daily living he has poor social support. Allegedly was sitting on the couch for 10 days straight patient is cachectic and disheveled at the bedside. Vital signs stable. Laboratory evaluation obtained. Thrombocytopenia. Potassium 1.2 lactic acidosis 6.1. Troponin 0.055. Patient has no ACS symptoms. Troponin li not likely secondary to ca rdiac process. Patient given potassium replacement IV fluids. Case discussed with hospitalist for admission. Imaging studies are negative. Did you discuss the management of the patient with other professionals (professionals i.e. , PA, MEMORIAL MARKER DESIGNER, lab, RT, psych nurse, social science instructor, fisher trap, teacher, state patrol officer, case management manager)? Give summary @ -See above Was critical care preformed (if so, how long)? @ -No Undiagnosed new problem with uncertain prognosis? @ -No Drug Therapy requiring intensive monitoring for toxicity (Heparin, Nitro, Insulin, Cardizem)? @ -No Were any procedures done? @ -No Diagnosis/symptom? Acute, or Chronic, or Acute on Chronic? Uncomplicated (without systemic symptoms) or Complicated (systemic symptoms)? @ -Gravely disabled, hypokalemia Side effects of treatment? @ -No Exacerbation, Progression, or Severe Exacerbation? @ -No Poses a threat to life or bodily function? How? (Chest pain, USA, OH, pneumonia, PE, COPD, DKA, ARF, appy, cholecystitis, CVA, Diverticulitis, Homicidal, Suicidal, threat to staff... and all critical care pts) @ -yes - Lab Data Result diagrams: 02/28/25 17:55 02/28/25 17:55 Lab Results 02/28/25 02/28/25 02/28/25 Range/Units 17:55 17:55 17:55 WBC 6.92 (4.50-10.00) 10*3/uL RBC 3.77 L (4.40-5.60) 10*6/uL Hgb 11.3 L (13.0-17.0) g/dL Hct 33.1 L (39.6-50.0) % MCV 87.8 (80.0-97.0) fL MCH 30.0 (27.0-32.0) pg MCHC 34.1 (32.0-37.0) g/dL Plt Count 96 L (140-440) 10*3/uL MPV 10.3 (9.5-12.2) fL Immature Gran % (Auto) 0.4 % Neutrophils % 64.2 % Lymphocytes % 31.5 % Monocytes % 3.3 % Eosinophils % 0.3 % Basophils % 0.3 % Immature Gran # 0.03 (0.00-0.04) 10*3/uL Neutrophils # 4.44 (1.80-7.70) 10*3/uL Lymphocytes # 2.18 (0.90-5.00) 10*3/uL Monocytes # 0.23 (0.20-1.00) 10*3/uL Eosinophils # 0.02 L (0.04-0.35) 10*3/uL Basophils # 0.02 (0.00-0.10) 10*3/uL Manual Slide Review Performed PT 16.0 H (10.0-12.5) sec INR 1.5 H (<1.2) APTT 23.4 (22.0-30.0) sec Sodium 138 (137-145) mmol/L Potassium 1.2 L* (3.5-5.1) mmol/L Chloride 103 (98-107) mmol/L Carbon Dioxide 24 (22-30) mmol/L Anion Gap 11 mmol/L BUN 18 (9-20) mg/dL Creatinine 1.16 (0.66-1.25) mg/dL Est GFR (CKD-EPI)AfAm 74 (>60 ml/min/1.73 sqM) Est GFR (CKD-EPI)NonAf 64 (>60 ml/min/1.73 sqM) Glucose 93 (74-99) mg/dL Plasma Lactic Acid Figueroa (0.7-2.0) mmol/L Calcium 7.0 L (8.4-10.2) mg/dL Magnesium 1.6 (1.6-2.3) mg/dL Total Bilirubin 1.1 (0.2-1.3) mg/dL AST 38 (17-59) U/L ALT 25 (4-49) U/L Alkaline Phosphatase 104 (38-126) U/L Creatine Kinase 183 H (55-170) U/L Troponin I (0.000-0.034) ng/mL Total Protein 4.7 L (6.3-8.2) g/dL Albumin 2.1 L (3.5-5.0) g/dL 02/28/25 02/28/25 Range/Units 17:55 17:55 WBC (4.50-10.00) 10*3/uL RBC (4.40-5.60) 10*6/uL Hgb (13.0-17.0) g/dL Hct (39.6-50.0) % MCV (80.0-97.0) fL MCH (27.0-32.0) pg MCHC (32.0-37.0) g/dL Plt Count (140-440) 10*3/uL MPV (9.5-12.2) fL Immature Gran % (Auto) % Neutrophils % % Lymphocytes % % Monocytes % % Eosinophils % % Basophils % % Immature Gran # (0.00-0.04) 10*3/uL Neutrophils # (1.80-7.70) 10*3/uL Lymphocytes # (0.90-5.00) 10*3/uL Monocytes # (0.20-1.00) 10*3/uL Eosinophils # (0.04-0.35) 10*3/uL Basophils # (0.00-0.10) 10*3/uL Manual Slide Review PT (10.0-12.5) sec INR (<1.2) APTT (22.0-30.0) sec Sodium (137-145) mmol/L Potassium (3.5-5.1) mmol/L Chloride (98-107) mmol/L Carbon Dioxide (22-30) mmol/L Anion Gap mmol/L BUN (9-20) mg/dL Creatinine (0.66-1.25) mg/dL Est GFR (CKD-EPI)AfAm (>60 ml/min/1.73 sqM) Est GFR (CKD-EPI)NonAf (>60 ml/min/1.73 sqM) Glucose (74-99) mg/dL Plasma Lactic Acid Figueroa 6.1 H* (0.7-2.0) mmol/L Calcium (8.4-10.2) mg/dL Magnesium (1.6-2.3) mg/dL Total Bilirubin (0.2-1.3) mg/dL AST (17-59) U/L ALT (4-49) U/L Alkaline Phosphatase (38-126) U/L Creatine Kinase (55-170) U/L Troponin I 0.055 H* (0.000-0.034) ng/mL Total Protein (6.3-8.2) g/dL Albumin (3.5-5.0) g/dL Disposition Clinical Impression: Hypokalemia, Gravely disabled Disposition: ADMITTED IP TO THIS [facility] Condition: Fair Referrals: None,Stated [Primary Care Provider] - 1-2 days Decision Time: 19:28
[2025-02-28 18:04] LABS: Basophils # (A) 0.02 10*3/uL (0.00-0.10); Basophils % (A) 0.3 %; Eosinophils # (A) 0.02 10*3/uL (0.04-0.35); Eosinophils % (A) 0.3 %; HCT 33.1 % (39.6-50.0); HGB 11.3 g/dL (13.0-17.0); Lymphocytes # (A) 2.18 10*3/uL (0.90-5.00); Lymphocytes % (A) 31.5 %; MCHC 34.1 g/dL (32.0-37.0); MCV 87.8 fL (80.0-97.0); Mean Platelet Volume 10.3 fL (9.5-12.2); Monocytes # (A) 0.23 10*3/uL (0.20-1.00); Monocytes % (A) 3.3 %; Neutrophils # (A) 4.44 10*3/uL (1.80-7.70); Neutrophils % (A) 64.2 %; RBC 3.77 10*6/uL (4.40-5.60); RDW 14.9 % (11.5-14.5); WBC 6.92 10*3/uL (4.50-10.00)
[2025-02-28 18:15] LABS: INR 1.5 (<1.2); Partial Thromboplastin Time 23.4 sec (22.0-30.0)
--- NOTE | 2025-02-28 18:31 | XR ---
EXAMINATION TYPE: XR chest 1V portable DATE OF EXAM: 02/28/2025 6:25 PM COMPARISON: Prior chest radiograph 05/25/2020. CLINICAL INDICATION: Male, 70 years old with history of weakness; [facility] TECHNIQUE: XR chest 1V portable Frontal view of the chest. FINDINGS: Lungs/Pleura: There is no evidence of pleural effusion, focal consolidation, or pneumothorax. Pulmonary vascularity: Unremarkable. Heart/mediastinum: Cardiomediastinal silhouette is unremarkable. Musculoskeletal: No acute osseous pathology. Other findings: None IMPRESSION: No acute cardiopulmonary disease/process. [facility], , 02/28/2025 6:29 PM
[2025-02-28 18:42] LABS: Platelet Count 96 10*3/uL (140-440)
[2025-02-28 18:48] LABS: AST 38 U/L (17-59); African American GFR (CKD) 74 (>60 ml/min/1.73 sqM); Albumin 2.1 g/dL (3.5-5.0); Alkaline Phosphatase 104 U/L (38-126); Anion Gap 11 mmol/L; Blood Urea Nitrogen 18 mg/dL (9-20); Carbon Dioxide 24 mmol/L (22-30); Chloride 103 mmol/L (98-107); Creatine Kinase 183 U/L (55-170); Glucose 93 mg/dL (74-99); Magnesium 1.6 mg/dL (1.6-2.3); Non-African American GFR(CKD) 64 (>60 ml/min/1.73 sqM); Sodium 138 mmol/L (137-145); Total Bilirubin 1.1 mg/dL (0.2-1.3); Total Protein 4.7 g/dL (6.3-8.2)
[2025-02-28 18:54] LABS: ALT 25 U/L (4-49)
[2025-02-28 19:00] LABS: Potassium 1.2 mmol/L (3.5-5.1)
[2025-02-28] MEDS ORDERED: NALOXONE 0.4 MG/ML 1 ML VIAL IV PRN (19:23)
--- NOTE | 2025-02-28 19:24 | CT ---
EXAMINATION TYPE: CT brain wo con DATE OF EXAM: 02/28/2025 6:54 PM COMPARISON: None. CLINICAL INDICATION: Male, 70 years old with history of weakness, no known injury, recent confusion TECHNIQUE: Brain: Axial CT images of the brain were obtained with coronal and sagittal reformats created and rev iewed. Contrast used: None. Oral contrast used: None. CT DLP: 1096.4 mGycm, Automated exposure control for dose reduction was used. FINDINGS: Brain: Extra-axial spaces: No abnormal extra-axial fluid collections. Ventricular system: Dilatation in proportion to cerebral atrophy. Cerebral parenchyma: No acute intraparenchymal hemorrhage or mass effect. The mane-white junction is well differentiated. Scattered hypoattenuating areas are seen within the white matter. Cerebellum: Unremarkable. Mass effect: No evidence of midline shift. Intracranial vasculature: unremarkable Soft tissues: Normal. Calvarium/osseous structures: No depressed skull fracture. Paranasal sinuses and mastoid air cells: Mild scattered paranasal sinus disease. Visualized orbits: Orbital contents are intact. IMPRESSION: No acute intracranial process. [facility], , 02/28/2025 7:22 PM
[2025-02-28] MEDS: SODIUM CHLORIDE 0.9% 1,000 ML IV STA ×2 (19:44→20:08)
[2025-02-28] MEDS: POTASSIUM CHLORIDE 40 MEQ in WATER FOR INJECTION 1 100ML.BAG IVPB STA (19:45)
[2025-02-28] MEDS: POTASSIUM CHLORIDE ER 20 MEQ TAB.ER PO STA (19:48)
[2025-02-28] MEDS: SODIUM CHLORIDE 0.9% 1,000 ML IV SCH (19:54)
[2025-02-28] MEDS: MAGNESIUM SULFATE-D5W PMX 1 GM in DEXTROSE/WATER 1 100ML.BAG IVPB SCH (20:07)
--- NOTE | 2025-02-28 20:38 | P.HPIM ---
History of Present Illness H&P Date: 02/28/25 Chief Complaint: fall Patient is a 70 year old male with no significant past medical history presented to the ED after a fall. Patient reports having a fall 9 days ago. He denies losing consciousness, hitting his head, fainting. He was not able to get up and was lying on the floor for 9 days. He has his own place but lives alone. His neighbour then found him and called the EMS. EMS reported that he was found to be covered in stool. Patient states he quit drinking in October and is still smoking occasionally. Additionally, he mentions having black stools. He had an echocardiogram done in 2019 that showed EF 55-60%, mild concentric left ventricular hypertrophy, right ventricle is mildly enlarged, mild TR, ascending aorta is dilated measuring up to 4 cm. He also mentioned undergoing "surgery for hernia years ago and reportedly a suture wasn't removed and he did not get it evaluated, and now he experiences bleeding at the umbilicus if he has any trauma." Denies fever, chills, shortness of breath, cough, chest pain, palpitations, abdominal pain, nausea, vomiting, hematuria, dysuria, hematochezia, melena, headache, slurred speech, numbness, tingling, dizziness, lightheadedness, blurred vision, double vision. ED documentation reviewed. In the ED patient was treated with potassium chloride 40 meq PO, potassium chloride 20 meq IV, 0.9 normal saline. Vitals on admission T 97.8 F, NJ 81 bpm, RR 18, BP 112/81, SpO2 100% on room air EKG independently interpreted as sinus rhythm with frequent PVCs, ST depression in leads II, III, V4-6; flattened T waves diffusely, QTc 454 ms Chest x-ray shows no acute cardiopulmonary disease/process Brain CT shows no acute intracranial process Labs on admission show WBC 6.92, hemoglobin 11.3, platelet 96, PT 16, INR 1.5, sodium 138, potassium 1.2, creatinine 1.16, lactic acid 6.1, calcium 7, creatinine kinase 183, troponin I 0.055, albumin 2.1 Review of systems: Pertinent positives and negatives as discussed in HPI, a complete review of sy stems was performed and all other systems are negative. Physical examination: Vital signs reviewed General: cachectic, nontoxic, no distress, appears at stated age Derm: warm, dry, intact Head: atraumatic, normocephalic, symmetric Eyes: EOMI, anicteric sclera Mouth: no lip lesion, mucus membranes moist Cardiovascular: S1 S2 reg, no murmur Lungs: CTA bilateral, no rhonchi, no rales, no accessory muscle use Abdominal: soft, non-tender to palpation, dried blood at the umbilicus Extremities: No cyanosis, clubbing, or pedal edema. Neuro: Alert, Oriented, Gross neurological examination did not reveal any focal deficits. Psych: well appearing, appropriate affect Assessment/Plan: Patient is a 70 year old male with no significant past medical history presented to the ED after a fall. Patient admitted to internal medicine service for failure to thrive. Active: #. Failure to thrive #. Mechanical fall #. Possible rhabdomyolysis #. Protein calorie malnutrition CK [address] shows no acute intracranial process Ensure oral supplement Obtain TSH, Vitamin B12, urinalysis Fall precautions Consult social work Consult PT and OT #. Hypokalemia EKG independently interpreted as sinus rhythm with frequent PVCs, ST depression in leads II, III, V4-6; flattened T waves diffusely, QTc 454 ms Received potassium chloride 40 meq PO, potassium chloride 20 meq IV in the ED Potassium chloride 40 meq PO QID Check K every 6 hours Obtain Mg Continue telemetry monitoring Monitor BMP #. Possible prerenal [place] #. Dehydration Creatinine in 2019- 0.6 On admission creatinine 1.16 Received 1L 0.9 NS bolus in the ED 0.9 Normal saline at 130 ml/hr Monitor BMP #. Lactic acidosis #. HAGMA + metbolic alkalosis Albumin corrected anion gap 15.8 Albumin corrected delta gap 3.8 Lactic acid 6.1 Received 1L 0.9 NS bolus in the ED 0.9 Normal saline at 130 ml/hr Trend lactic acid #. Normocytic anemia #. GI bleed Patient reports black stools Obtain stool occult blood, iron studies, LDH, retic count Protonix 40 mg IV BID Monitor CBC Transfuse for Hb < 7 #. Coagulopathy #. Thrombocytopenia Alcohol use for 50+ years, quit in Oct 2024 Patient denies any abdominal pain Initiate Folic acid, Thiamine, multivitamins Monitor Coagulation panel #. Troponin elevation, tetoley Type II NSTEMI Troponin I 0.055 EKG independently interpreted as sinus rhythm with frequent PVCs, ST depression in leads II, III, V4-6; flattened T waves diffusely, QTc 454 ms Continue to trend troponin Continue telemetry monitoring #. Hypocalcemia Corrected calcium for albumin 8.5 Monitor BMP F: 0.9 normal saline at 130 ml/hr E: Replete K N: Heart healthy diet A: Bed rest DVT prophylaxis: SCD GI prophylaxis: Pantoprazole 40 mg IVP daily The patient is admitted with an anticipated more than 2 midnight stay for evaluation of failure to thrive CODE STATUS: FULL CODE Discussed with: Patient Anticipated discharge place: Pending clinical course Dictation was produced using [employer] dictation software. please excuse any grammatical, word or spelling errors. Colleen Hernández MD PGY-1 IM Attestation : Patient seen and examined with clinical medical assistant. Agree with above assessment and plan. Patient is a 70-year-old with no significant past medical history presenting from home with complaints of weakness and unable to take care of himself . Presentation seems to be failure to thrive in adult. Labs remarkable for significant hypokalemia with a potassium of 1.9, lactate of 6.1. EKG independently interpreted as sinus rhythm with frequent PVCs, ST depression in leads II, III, V4-6; flattened T waves diffusely, QTc 454 ms . Patient is asymptomatic and not complaining of any symptoms except for weakness. Replace potassium, repeat potassium level, order magnesium level, aggressive IV fluid resuscitation. Pending creatinine kinase level. Corrected calcium level is 8.5. Patient awake and oriented to self only. Questionable underlying cognit pola decline versus dementia . Patient has remote history of alcohol abuse. He reports that he quit alcohol drinking since October 2024 . No signs or reports of alcohol withdrawal. Continue with thiamine and folic acid daily. Patient reports black stools. His hemoglobin is around 11. Pending stool occult. Continue with Protonix 40 mg twice daily. Lactic acidosis due to dehydration and hypoperfusion. Continue on repeating lactate. No signs and symptoms of sepsis. Pending urine analysis. Prognosis is guarded and may benefit from palliative care consult. CODE STATUS is full code Time spent : 55 min Past Medical History Past Medical History: No Reported History History of Any Multi-Drug Resistant Organisms: None Reported Past Surgical History: Hernia Repair Past Psychological History: No Psychological Hx Reported Smoking Status: Current every day smoker Past Alcohol Use History: Occasional Past Drug Use History: None Reported Medications and Allergies Home Medications Medication Instructions Recorded Confirmed Type No Known Home Medications 02/28/25 02/28/25 History Allergies Allergy/AdvReac Type Severity Reaction Status Date / Time Fish Containing Products AdvReac Nausea & Verified 02/28/25 20:52 [Fish] Vomiting Physical Exam Vitals: Vital Signs Temp Pulse Resp BP Pulse Ox 02/28/25 17:20 97.8 F 81 18 112/81 100 Intake and Output 02/28/25 02/28/25 02/28/25 06:59 14:59 22:59 Other: Weight 72.575 kg Results CBC & Chem 7: 02/28/25 17:55 02/28/25 17:55 Labs: Abnormal Lab Results - Last 24 Hours (Table) 02/28/25 02/28/25 02/28/25 Range/Units 17:55 17:55 17:55 RBC 3.77 L (4.40-5.60) 10*6/uL Hgb 11.3 L (13.0-17.0) g/dL Hct 33.1 L (39.6-50.0) % Plt Count 96 L (140-440) 10*3/uL Eosinophils # 0.02 L (0.04-0.35) 10*3/uL PT 16.0 H (10.0-12.5) sec INR 1.5 H (<1.2) Potassium 1.2 L* (3.5-5.1) mmol/L Plasma Lactic Acid Figueroa (0.7-2.0) mmol/L Calcium 7.0 L (8.4-10.2) mg/dL Creatine Kinase 183 H (55-170) U/L Troponin I (0.000-0.034) ng/mL Total Protein 4.7 L (6.3-8.2) g/dL Albumin 2.1 L (3.5-5.0) g/dL 02/28/25 02/28/25 Range/Units 17:55 17:55 RBC (4.40-5.60) 10*6/uL Hgb (13.0-17.0) g/dL Hct (39.6-50.0) % Plt Count (140-440) 10*3/uL Eosinophils # (0.04-0.35) 10*3/uL PT (10.0-12.5) sec INR (<1.2) Potassium (3.5-5.1) mmol/L Plasma Lactic Acid Figueroa 6.1 H* (0.7-2.0) mmol/L Calcium (8.4-10.2) mg/dL Creatine Kinase (55-170) U/L Troponin I 0.055 H* (0.000-0.034) ng/mL Total Protein (6.3-8.2) g/dL Albumin (3.5-5.0) g/dL
[2025-02-28] MEDS: POTASSIUM CHLORIDE ER 20 MEQ TAB.ER PO SCH (21:14)
[2025-02-28] MEDS: FOLIC ACID 1 MG TAB PO SCH (21:14)
[2025-02-28] MEDS: PANTOPRAZOLE 40 MG/10 ML VIAL IVP SCH (21:14)
[2025-02-28] MEDS: MULTIVITAMINS, THERA 1 EACH TAB PO SCH (21:14)
[2025-02-28] MEDS: THIAMINE 100 MG TAB PO SCH (21:14)
[2025-02-28 22:13] LABS: Appearance,Urine Clear (Clear); Bilirubin,Urine Negative (Negative); Blood,Urine Negative (Negative); Color,Urine Yellow; Glucose,Urine (UA) Negative (Negative); Ketones,Urine Negative (Negative); Leukocyte Esterase,Urine Negative (Negative); Nitrite,Urine Negative (Negative); Protein,Urine Trace (Negative); Specific Gravity,Urine 1.013 (1.001-1.035); Urobilinogen,Urine <2.0 mg/dL (<2.0)
[2025-02-28] MEDS ORDERED: HALOPERIDOL LACTATE 5 MG/ML 1 ML VIAL IM PRN (23:05)
[2025-02-28] MEDS ORDERED: haloperidoL 5 MG TAB PO PRN (23:05)
[2025-03-01 00:04] LABS: Potassium 1.4 mmol/L (3.5-5.1)
[2025-03-01] MEDS: POTASSIUM PHOSPHATE 10 MMOL in SODIUM CHLORIDE 0.9% 250 ML IV SCH (01:09)
[2025-03-01] MEDS: POTASSIUM CHLORIDE 20 MEQ in WATER FOR INJECTION 1 100ML.BAG IVPB SCH ×2 (02:13→08:40)
[2025-03-01 04:32] LABS: HCT 29.2 % (39.6-50.0); HGB 9.9 g/dL (13.0-17.0); MCH 30.5 pg (27.0-32.0); MCHC 33.9 g/dL (32.0-37.0); MCV 89.8 fL (80.0-97.0); Mean Platelet Volume 9.9 fL (9.5-12.2); RBC 3.25 10*6/uL (4.40-5.60); RDW 14.8 % (11.5-14.5); WBC 4.81 10*3/uL (4.50-10.00)
[2025-03-01 04:41] LABS: Platelet Count 73 10*3/uL (140-440)
[2025-03-01 04:42] LABS: INR 1.6 (<1.2); Partial Thromboplastin Time 30.4 sec (22.0-30.0); Prothrombin Time 16.4 sec (10.0-12.5)
[2025-03-01 04:57] LABS: African American GFR (CKD) 88 (>60 ml/min/1.73 sqM); Anion Gap 7 mmol/L; Blood Urea Nitrogen 15 mg/dL (9-20); Carbon Dioxide 25 mmol/L (22-30); Chloride 106 mmol/L (98-107); Glucose 83 mg/dL (74-99); Non-African American GFR(CKD) 77 (>60 ml/min/1.73 sqM); Sodium 138 mmol/L (137-145)
[2025-03-01 04:58] LABS: LDH 328 U/L (120-246)
[2025-03-01 05:13] LABS: Calcium 6.3 mg/dL (8.4-10.2); Potassium 1.6 mmol/L (3.5-5.1)
[2025-03-01] MEDS: CALCIUM GLUCONATE IN NACL 1 GM in SALINE 1 100ML.BAG IVPB ONE ×2 (07:46→20:53)
[2025-03-01] MEDS: POTASSIUM CHLORIDE ER 10 MEQ TAB.ER.PRT PO SCH (08:08)
[2025-03-01 08:15] LABS: Potassium 1.9 mmol/L (3.5-5.1)
[2025-03-01 08:49] LABS: Reticulocyte % 1.76 % (0.10-1.80)
[2025-03-01 08:58] LABS: % Iron Saturation 84.96 (15.00-50.00); Iron 96 UG/DL (65-175); Total Iron Binding Capacity 113 UG/DL (228-460)
[2025-03-01] MEDS: ASPIRIN 81 MG PO SCH (11:34)
[2025-03-01] MEDS: ATORVASTATIN 40 MG TAB PO SCH (11:34)
--- NOTE | 2025-03-01 12:55 | P.PN ---
Subjective Progress Note Date: 03/01/25 Patient is a 70 year old male with no significant past medical history presented to the ED after a fall. Patient reports having a fall 9 days ago. He denies losing consciousness, hitting his head, fainting. He was not able to get up and was lying on the floor for 9 days. He has his own place but lives alone. His neighbour then found him and called the EMS. EMS reported that he was found to be covered in stool. Patient states he quit drinking in October and is still smoking occasionally. Additionally, he mentions having black stools. He had an echocardiogram done in 2019 that showed EF 55-60%, mild concentric left ventricular hypertrophy, right ventricle is mildly enlarged, mild TR, ascending aorta is dilated measuring up to 4 cm. He also mentioned undergoing "surgery for hernia years ago and reportedly a suture wasn't removed and he did not get it evaluated, and now he experiences bleeding at the umbilicus if he has any trauma." Denies fever, chills, shortness of breath, cough, chest pain, p alpitations, abdominal pain, nausea, vomiting, hematuria, dysuria, hematochezia, melena, headache, slurred speech, numbness, tingling, dizziness, lightheadedness, blurred vision, double vision. ED documentation reviewed. In the ED patient was treated with potassium chloride 40 meq PO, potassium chloride 20 meq IV, 0.9 normal saline. 03/01/25 - Patient seen and examined at bedside. He has no complaints of chest pain, shortness of breath, nausea, vomiting. Review of systems: Pertinent positives and negatives as discussed in HPI, a complete review of systems was performed and all other systems are negative. Physical examination: Vital signs reviewed General: cachectic, nontoxic, no distress, appears at stated age Cardiovascular: S1 S2 reg, no murmur Lungs: CTA bilateral, no rhonchi, no rales, no accessory muscle use Abdominal: soft, non-tender to palpation, dried blood at the umbilicus Extremities: No cyanosis, clubbing, or pedal edema. Neuro: Alert, Oriented, Gross neurological examination did not reveal any focal deficits. Psych: well appearing, appropriate affect Todays significant findings: Labs - Hgb 9.9, plt 73, PT 16, INR 1.6, aPTT 30.4, K 1.6, Ca 6.3, LDH 328, Trop 0.043 No new imaging Assessment/Plan: Patient is a 70 year old male with no significant past medical history presented to the ED after a fall. Active: #. Failure to thrive #. Mechanical fall #. Protein calorie malnutrition CK [address] shows no acute intracranial process Ensure oral supplement TSH, Vitamin B12, urinalysis are WNL Fall precautions Social work consulted PT and OT consulted #. Severe hypokalemia Initial EKG findings of frequent PVCs, ST depression in leads II, III, V4-6; flattened T waves diffusely, QTc 454 ms Received potassium chloride 40 meq PO, potassium chloride 20 meq IV in the ED Continue potassium chloride 40 meq PO QID Continue potassium chloride 20 mEq IV 4 times Check K every 6 hours Magnesium is WNL Continue telemetry monitoring Monitor BMP #. Troponin elevation, likley Type II NSTEMI Initial Troponin I 0.055 => 0.043 remains relatively stable Continue to trend troponin Continue telemetry monitoring Begin aspirin 81 mg daily, and atorvastatin 40 mg daily Echocardiogram ordered #. Possible prerenal [place] #. Dehydration Creatinine in 2019- 0.6 On admission creatinine 1.16 Received 1L 0.9 NS bolus in the ED Continue IV normal saline Monitor BMP #. Lactic acidosis, improved #. HAGMA + metbolic alkalosis, improved Albumin corrected anion gap 15.8 Albumin corrected delta gap 3.8 Lactic acid 6.1 Received 1L 0.9 NS bolus in the ED 0.9 Normal saline at 130 ml/hr Trend lactic acid #. Normocytic anemia, likely due to poor nutrition, low suspicion for GI bleed Patient reports black stools Iron studies with high saturation, LDH 328, retic count 1.76 is less than expected Haptoglobin ordered Protonix 40 mg IV BID Monitor CBC Transfuse for Hb < 7 #. Coagulopathy #. Thrombocytopenia Alcohol use for 50+ years, quit in Oct 2024 Patient denies any abdominal pain Initiate Folic acid, Thiamine, multivitamins Monitor Coagulation panel #. Hypocalcemia Corrected calcium for albumin 8.5 Ionized calcium ordered Monitor BMP F: IV NS E: Replete K N: Heart healthy diet A: Bed rest DVT prophylaxis: SCD GI prophylaxis: Pantoprazole 40 mg IVP daily CODE STATUS: FULL CODE Discussed with: Patient Anticipated discharge place: Pending clinical course Gaurav Orellana MD Internal Medicine Resident, PGY1 Dictation was produced using [employer] dictation software. please excuse any grammatical, word or spelling errors. I have seen and evaluated the patient today. Discussed with the resident and agree with the residents finding and plan as documented in the resident's note. Changes highlighted in blue font. Objective - Vital Signs Vital signs: Vital Signs Temp 97.8 F 02/28/25 20:11 Pulse 71 03/01/25 07:48 Resp 16 03/01/25 07:48 BP 120/97 03/01/25 07:48 Pulse Ox 100 03/01/25 07:48 FiO2 Intake & Output 02/28/25 03/01/25 03/01/25 18:59 06:59 18:59 Weight 72.575 kg - Labs CBC & Chem 7: 03/01/25 04:03 03/01/25 12:29 Labs: Abnormal Lab Results - Last 24 Hours (Table) 02/28/25 02/28/25 02/28/25 Range/Units 17:55 17:55 17:55 RBC 3.77 L (4.40-5.60) 10*6/uL Hgb 11.3 L (13.0-17.0) g/dL Hct 33.1 L (39.6-50.0) % Plt Count 96 L (140-440) 10*3/uL Eosinophils # 0.02 L (0.04-0.35) 10*3/uL PT 16.0 H (10.0-12.5) sec INR 1.5 H (<1.2) APTT (22.0-30.0) sec Potassium 1.2 L* (3.5-5.1) mmol/L Plasma Lactic Acid Figueroa (0.7-2.0) mmol/L Calcium 7.0 L (8.4-10.2) mg/dL Phosphorus (2.5-4.5) mg/dL Lactate Dehydrogenase (120-246) U/L Creatine Kinase 183 H (55-170) U/L Troponin I (0.000-0.034) ng/mL Total Protein 4.7 L (6.3-8.2) g/dL Albumin 2.1 L (3.5-5.0) g/dL Urine Protein (Negative) Ur Random Potassium (25.0-125.0) mmol/L 0602/28/25 02/28/25 Range/Units 17:55 17:55 17:55 RBC (4.40-5.60) 10*6/uL Hgb (13.0-17.0) g/dL Hct (39.6-50.0) % Plt Count (140-440) 10*3/uL Eosinophils # (0.04-0.35) 10*3/uL PT (10.0-12.5) sec INR (<1.2) APTT (22.0-30.0) sec Potassium (3.5-5.1) mmol/L Plasma Lactic Acid Figuero[place] 6.1 H* (0.7-2.0) mmol/L Calcium (8.4-10.2) mg/dL Phosphorus 1.3 L (2.5-4.5) mg/dL Lactate Dehydrogenase (120-246) U/L Creatine Kinase (55-170) U/L Troponin I 0.055 H* (0.000-0.034) ng/mL Total Protein (6.3-8.2) g/dL Albumin (3.5-5.0) g/dL Urine Protein (Negative) Ur Random Potassium (25.0-125.0) mmol/L 02/28/25 02/28/25 02/28/25 Range/Units 20:00 20:51 20:51 RBC (4.40-5.60) 10*6/uL Hgb (13.0-17.0) g/dL Hct (39.6-50.0) % Plt Count (140-440) 10*3/uL Eosinophils # (0.04-0.35) 10*3/uL PT (10.0-12.5) sec INR (<1.2) APTT (22.0-30.0) sec Potassium (3.5-5.1) mmol/L Plasma Lactic Acid [place]uero[place] 3.1 H* 2.6 H* (0.7-2.0) mmol/L Calcium (8.4-10.2) mg/dL Phosphorus (2.5-4.5) mg/dL Lactate Dehydrogenase (120-246) U/L Creatine Kinase (55-170) U/L Troponin I 0.053 H* (0.000-0.034) ng/mL Total Protein (6.3-8.2) g/dL Albumin (3.5-5.0) g/dL Urine Protein (Negative) Ur Random Potassium (25.0-125.0) mmol/L 02/28/25 02/28/25 02/28/25 Range/Units 21:59 21:59 22:53 RBC (4.40-5.60) 10*6/uL Hgb (13.0-17.0) g/dL Hct (39.6-50.0) % Plt Count (140-440) 10*3/uL Eosinophils # (0.04-0.35) 10*3/uL PT (10.0-12.5) sec INR (<1.2) APTT (22.0-30.0) sec Potassium 1.4 L* (3.5-5.1) mmol/L Plasma Lactic Acid Figuero[place] (0.7-2.0) mmol/L Calcium (8.4-10.2) mg/dL Phosphorus (2.5-4.5) mg/dL Lactate Dehydrogenase (120-246) U/L Creatine Kinase (55-170) U/L Troponin I (0.000-0.034) ng/mL Total Protein (6.3-8.2) g/dL Albumin (3.5-5.0) g/dL Urine Protein Trace H (Negative) Ur Random Potassium 3.4 L (25.0-125.0) mmol/L 02/28/25 03/01/25 03/01/25 Range/Units 22:53 00:47 04:03 RBC (4.40-5.60) 10*6/uL Hgb (13.0-17.0) g/dL Hct (39.6-50.0) % Plt Count (140-440) 10*3/uL Eosinophils # (0.04-0.35) 10*3/uL PT (10.0-12.5) sec INR (<1.2) APTT (22.0-30.0) sec Potassium (3.5-5.1) mmol/L Plasma Lactic Acid [place] 2.2 H* (0.7-2.0) mmol/L Calcium (8.4-10.2) mg/dL Phosphorus (2.5-4.5) mg/dL Lactate Dehydrogenase (120-246) U/L Creatine Kinase (55-170) U/L Troponin I 0.049 H* 0.043 H* (0.000-0.034) ng/mL Total Protein (6.3-8.2) g/dL Albumin (3.5-5.0) g/dL Urine Protein (Negative) Ur Random Potassium (25.0-125.0) mmol/L 03/01/25 03/01/25 03/01/25 Range/Units 04:03 04:03 04:03 RBC 3.25 L (4.40-5.60) 10*6/uL Hgb 9.9 L (13.0-17.0) g/dL Hct 29.2 L (39.6-50.0) % Plt Count 73 L (140-440) 10*3/uL Eosinophils # (0.04-0.35) 10*3/uL PT 16.4 H (10.0-12.5) sec INR 1.6 H (<1.2) APTT 30.4 H (22.0-30.0) sec Potassium 1.6 L* (3.5-5.1) mmol/L Plasma Lactic Acid Figueroa (0.7-2.0) mmol/L Calcium 6.3 L* (8.4-10.2) mg/dL Phosphorus (2.5-4.5) mg/dL Lactate Dehydrogenase (120-246) U/L Creatine Kinase (55-170) U/L Troponin I (0.000-0.034) ng/mL Total Protein (6.3-8.2) g/dL Albumin (3.5-5.0) g/dL Urine Protein (Negative) Ur Random Potassium (25.0-125.0) mmol/L 03/01/25 Range/Units 04:03 RBC (4.40-5.60) 10*6/uL Hgb (13.0-17.0) g/dL Hct (39.6-50.0) % Plt Count (140-440) 10*3/uL Eosinophils # (0.04-0.35) 10*3/uL PT (10.0-12.5) sec INR (<1.2) APTT (22.0-30.0) sec Potassium (3.5-5.1) mmol/L Plasma Lactic Acid Figueroa (0.7-2.0) mmol/L Calcium (8.4-10.2) mg/dL Phosphorus (2.5-4.5) mg/dL Lactate Dehydrogenase 328 H (120-246) U/L Creatine Kinase (55-170) U/L Troponin I (0.000-0.034) ng/mL Total Protein (6.3-8.2) g/dL Albumin (3.5-5.0) g/dL Urine Protein (Negative) Ur Random Potassium (25.0-125.0) mmol/L
[2025-03-01 16:30] LABS: % Iron Saturation 84.07 (15.00-50.00)
[2025-03-01] MEDS: CALCIUM GLUCONATE IVPB ONE (21:10)
[2025-03-01] MEDS: NACL IVPB ONE (21:10)
[2025-03-01] MEDS: SODIUM CHLORIDE 0.9% IVPB ONE (21:10)
[2025-03-02] MEDS: POTASSIUM CHLORIDE 20 MEQ in WATER FOR INJECTION 1 100ML.BAG IVPB SCH (01:00)
[2025-03-02 07:43] LABS: HGB 10.1 g/dL (13.0-17.0); Immature Platelet Fraction 2.8 % (1.1-6.1); MCH 29.1 pg (27.0-32.0); MCHC 32.6 g/dL (32.0-37.0); MCV 89.3 fL (80.0-97.0); Mean Platelet Volume 10.1 fL (9.5-12.2); RBC 3.47 10*6/uL (4.40-5.60); WBC 5.63 10*3/uL (4.50-10.00)
[2025-03-02] MEDS: ZINC OXIDE PASTE (Z-GUARD) 1 APPLIC TOPICAL PRN (08:11)
[2025-03-02] MEDS: NYSTATIN 100,000 UNIT/GM POWD 15 GM TOPICAL SCH (08:12)
[2025-03-02 08:21] LABS: Platelet Count 67 10*3/uL (140-440)
[2025-03-02 09:00] LABS: African American GFR (CKD) >90 (>60 ml/min/1.73 sqM); Anion Gap 4 mmol/L; Blood Urea Nitrogen 9 mg/dL (9-20); Calcium 6.7 mg/dL (8.4-10.2); Carbon Dioxide 22 mmol/L (22-30); Chloride 111 mmol/L (98-107); Glucose 86 mg/dL (74-99); Magnesium 1.5 mg/dL (1.6-2.3); Non-African American GFR(CKD) >90 (>60 ml/min/1.73 sqM); Potassium 3.1 mmol/L (3.5-5.1); Sodium 137 mmol/L (137-145)
--- NOTE | 2025-03-02 10:36 | CDI ---
Documentation Clarification Form Date: 03/02/2025 10:03:41 AM From: Elif Cisse RN CCDS Phone: [phone] Admit Date: 02/28/2025 07:24:00 PM Patient Name: Patricio Dalal Visit Number: [id number] Discharge Date: ATTENTION: The Clinical Documentation Specialists (CDI) and [facility] Coding Staff appreciate your assistance in clarifying documentation. Please respond to the clarification below the line at the bottom and electronically sign. The CDI & [facility] Coding staff will review the response and follow-up if needed. Please note: Queries are made part of the Legal Health Record. If you have any questions, please contact the author of this message via ITS. Doctor: Ashkan Santillan The Registered Dietitian assessment on 03/01 indicates this patient meets criteria for Acute Severe Malnutrition. Based on this information and the findings below, is there an additional diagnosis that is clinically appropriate for this patient? History/Risk Factors: 70 year old male presents to the ED after a fall having nine days ago. Lives alone neighbors found him and called EMS. Reported that he was found to covered in stool. Patient states he quit drinking in October and is still smoking occasionally. Has had black stools. Medical History: Abd hernia, 02/28, [place] Clinical Indicators: RD Consult Assessment: Current BMI:20.5kg, weight 72.575kg Hgt 6ft 2inc Physical Findings: Underweight, additional patient observed to have moderate to severe muscle / fat deficits. Nutritional Diagnosis: Acute severe malnutrition, inadequate energy intake. Evidenced by: Muscle /fat losses: temporalis severe buccal severe orbital severe interosseous moderate, triceps moderate trapezius severe, deltoids severe pt reports UBW of 84kg suggesting 13.8% wt loss in an unknown time frame. Estimated protein needs: protein 1.5g/kg 105-110 grams/day, estimated fluid formula 1ml/Kcal, Estimated needs in Kcals: Energy formula for Estimated 30- 35Kcals/Kg Nutritional needs Energy Needs [id number]. Treatment: Monitor PO Intake, Monitor Supplement Intake. RD consult above. Nutritional goals Supplements: Ensure TID vanilla Is there an additional diagnosis that is clinically appropriate for this patient? [ x ] Severe Protein-Calorie Malnutrition [ ] No additional diagnosis/Not clinically significant [ ] Other condition, please specify [ ] Unable to Determine Reference: Using the ASPEN Guidelines, Undernutrition (Malnutrition) is characterized by at least two of the following six findings. The severity can be determined based on the criteria listed below. Malnutrition Characteristics for Moderate and Severe Malnutrition Type of Malnutrition Acute Illness or Injury Chronic Illness Degree of Malnutrition Non-severe (moderate) Malnutrition Severe Malnutrition Non-severe (moderate) Malnutrition Severe Malnutrition Energy Intake <75% for >7 days = 50% for = 5 days <75% for = 1 month =75% for = 1 month Weight Loss 1-2% in one week, 5% in 1 month, 7.5% in 3 months 2% in one week, >5% in 1 month, >7.5% in 3 months 5% in one month, 7.5% in 3 months, 10% in 6 months, 20% in 1 year >5% in one month, >7.5% in 3 months, >10% in 6 months, >20% in 1 year Body Fat Wasting Mild Moderate Mild Severe Muscle Wasting Mild Moderate Mild Severe Presence of Edema Mild Moderate to Severe Mild Severe Hospital Television Rental Clerk Strength Not applicable Measurably Reduced Not applicable Measurably Reduced Source: Nestor QuispeV, Harmony P, Wall G, et al. Consensus statement: Academy of Nutrition and Dietetics and [place] Society for Parenteral and Enteral Nutrition: characteristics recommended for the identification and documentation of adult malnutrition (undernutrition).YAKELIN Quispe Parenter Enteral Nutr. 2012;36(3):275-283. (Template Last Revised: March 2023) MTDD
[2025-03-02] MEDS: MAGNESIUM SULFATE-D5W PMX 1 GM in DEXTROSE/WATER 1 100ML.BAG IVPB ONE (11:47)
--- NOTE | 2025-03-02 12:48 | P.PN ---
Subjective Progress Note Date: 03/02/25 Patient is a 70 year old male with no significant past medical history presented to the ED after a fall. Patient reports having a fall 9 days ago. He denies losing consciousness, hitting his head, fainting. He was not able to get up and was lying on the floor for 9 days. He has his own place but lives alone. His neighbour then found him and called the EMS. EMS reported that he was found to be covered in stool. Patient states he quit drinking in October and is still smoking occasionally. Additionally, he mentions having black stools. He had an echocardiogram done in 2019 that showed EF 55-60%, mild concentric left ventricular hypertrophy, right ventricle is mildly enlarged, mild TR, ascending aorta is dilated measuring up to 4 cm. He also mentioned undergoing "surgery for hernia years ago and reportedly a suture wasn't removed and he did not get it evaluated, and now he experiences bleeding at the umbilicus if he has any trauma." Denies fever, chills, shortness of breath, cough, chest pain, p alpitations, abdominal pain, nausea, vomiting, hematuria, dysuria, hematochezia, melena, headache, slurred speech, numbness, tingling, dizziness, lightheadedness, blurred vision, double vision. ED documentation reviewed. In the ED patient was treated with potassium chloride 40 meq PO, potassium chloride 20 meq IV, 0.9 normal saline. 03/01/25 - Patient seen and examined at bedside. He has no complaints of chest pain, shortness of breath, nausea, vomiting. 03/02/2025 - Patient seen and examined at bedside. No complaints. Eating and drinking well. Review of systems: Pertinent positives and negatives as discussed in HPI, a complete review of systems was performed and all other systems are negative. Physical examination: Vital signs reviewed General: cachectic, nontoxic, no distress, appears at stated age Cardiovascular: S1 S2 reg, no murmur Lungs: CTA bilateral, no rhonchi, no rales, no accessory muscle use Abdominal: soft, non-tender to palpation, dried blood at the umbilicus Extremities: No cyanosis, clubbing, or pedal edema. Neuro: Alert, Oriented, Gross neurological examination did not reveal any focal deficits. Psych: well appearing, appropriate affect Todays significant findings: Labs -hemoglobin 10.1, potassium 3.1, calcium 6.7, magnesium 1.5 No new imaging Assessment/Plan: Patient is a 70 year old male with no significant past medical history presented to the ED after a fall. Active: #. Failure to thrive #. Mechanical fall #. Severe protein calorie malnutrition CK [address] shows no acute intracranial process Ensure oral supplement TSH, Vitamin B12, urinalysis are WNL Fall precautions Social work consulted PT and OT consulted #.Severe hypokalemia, improving #Hypomagnesemia Initial EKG findings of frequent PVCs, ST depression in leads II, III, V4-6; flattened T waves diffusely, QTc 454 ms Received potassium chloride 40 meq PO, potassium chloride 20 meq IV in the ED Discontinue potassium chloride 40 meq PO QID Completed potassium chloride 20 mEq IV 4 times Given magnesium 1 g Continue telemetry monitoring Repeat potassium Phosphate ordered Monitor CMP #. Hypocalcemia Corrected calcium for albumin 8.5 Ionized calcium ordered Monitor CMP #. Troponin elevation, likley Type II NSTEMI Initial Troponin I 0.055 => 0.043 remains relatively stable Continue to trend troponin Continue telemetry monitoring Begin aspirin 81 mg daily, and atorvastatin 40 mg daily Echocardiogram ordered #. Possible prerenal DEN[place], improved #. Dehydration Creatinine in 2019- 0.6 On admission creatinine 1.16 Received 1L 0.9 NS bolus in the ED Continue IV normal saline Monitor BMP #. Lactic acidosis, improved #. HAGMA + metbolic alkalosis, improved Albumin corrected anion gap 15.8 Albumin corrected delta gap 3.8 Lactic acid 6.1 Received 1L 0.9 NS bolus in the ED 0.9 Normal saline at 130 ml/hr Trend lactic acid #. Normocytic anemia, likely due to poor nutrition, low suspicion for GI bleed Patient reports black stools Iron studies with high saturation, LDH 328, retic count 1.76 is less than expected Haptoglobin ordered Protonix 40 mg IV BID Monitor CBC Transfuse for Hb < 7 #. Coagulopathy #. Thrombocytopenia Alcohol use for 50+ years, quit in Oct 2024 Patient denies any abdominal pain Initiate Folic acid, Thiamine, multivitamins Monitor Coagulation panel F: IV NS E: Replete K, calcium and magnesium N: Heart healthy diet A: Bed rest DVT prophylaxis: SCD GI prophylaxis: Discontinued CODE STATUS: FULL CODE Discussed with: Patient Anticipated discharge place: Pending clinical course Gaurav Orellana MD Internal Medicine Resident, PGY1 Dictation was produced using [employer] dictation software. please excuse any grammatical, word or spelling errors. I have seen and evaluated the patient today. Discussed with the resident and agree with the residents finding and plan as documented in the resident's note. Changes highlighted in blue font Objective - Vital Signs Vital signs: Vital Signs Temp 97.5 F L 03/02/25 03:29 Pulse 80 03/02/25 03:29 Resp 16 03/02/25 03:29 BP 133/87 03/02/25 03:29 Pulse Ox 100 03/02/25 03:29 FiO2 Intake & Output 03/01/25 03/01/25 03/02/25 06:59 18:59 06:59 Intake Total 180 200 Balance 180 200 Weight 72.575 kg 83 kg Intake: IV 200 Potassium Chloride 20 meq 200 In Water For Injection 1 100ml.bag @ 50 mls/hr IVPB Q2H [facility] Rx#: [id number] Oral 180 Other: Voiding Method External Catheter External Catheter # Voids 1 # Bowel Movements 1 1 - Labs CBC & Chem 7: 03/02/25 06:34 03/02/25 13:26 Labs: Abnormal Lab Results - Last 24 Hours (Table) 03/01/25 03/01/25 03/01/25 Range/Units 04:03 07:25 12:29 Potassium 1.9 L* 2.3 L* (3.5-5.1) mmol/L Ionized Calcium Lynn (4.5-5.3) mg/dL TIBC 113 L 113 L (228-460) UG/DL % Saturation 84.96 H 84.07 H (15.00-50.00) Transferrin 80.9 L 80.6 L (204.0-354.0) mg/dL 03/01/25 03/01/25 03/01/25 Range/Units 12:29 18:17 23:15 Potassium 2.5 L* 2.6 L* (3.5-5.1) mmol/L Ionized Calcium Lynn 3.8 L (4.5-5.3) mg/dL TIBC (228-460) UG/DL % Saturation (15.00-50.00) Transferrin (204.0-354.0) mg/dL
--- NOTE | 2025-03-02 18:46 | CA ---
Transthoracic Echo Report Name: Patricio Dalal Age: 70 Gender: M : 1955 Exam Date: 03/02/2025 09:47 Exam Location: [facility] Ht (in): 74 Wt (lb): 160 Ordering Physician: Ashkan Santillan MD Attending/Referring Phys: [id number], Tyrell [employer] Operator Moriah Galarza RDCS Procedure CPT: Indications: nstemi Cardiac Hx: Technical Quality: Fair, Technically difficult study Contrast 1: Definity Total Dose (mL): 2 Contrast 2: Total Dose (mL): MEASUREMENTS (Male / Female) Normal Values 2D ECHO LV Diastolic Diameter PLAX 4.4 cm 4.2 - 5.9 / 3.9 - 5.3 cm LV Systolic Diameter PLAX 3.8 cm IVS Diastolic Thickness 0.9 cm 0.6 - 1.0 / 0.6 - 0.9 cm LVPW Diastolic Thickness 1.1 cm 0.6 - 1.0 / 0.6 - 0.9 cm LV Relative Wall Thickness 0.5 RV Internal Dim ED PLAX 2.4 cm LVOT Diameter 2.0 cm LA Systolic Diameter LX 3.7 cm 3.0 - 4.0 / 2.7 - 3.8 cm LV Diastolic Volume MOD BP 84.1 cm??? 67 - 155 / 56 - 104 cm??? LV Systolic Volume MOD BP 48.8 cm??? 22 - 58 / 19 - 49 cm??? LV Ejection Fraction MOD BP 42.0 % >= 55 % LV Cardiac Index MOD BP 1731.8 cm???/min???m??? LV Diastolic Volume MOD 4C 80.9 cm??? LV Systolic Volume MOD 4C 46.4 cm??? LV Ejection Fraction MOD 4C 42.6 % LV Cardiac Index MOD 4C 1691.3 cm???/min???m??? LV Diastolic Length 4C 8.7 cm LV Systolic Length 4C 7.7 cm LV Diastolic Volume MOD 2C 87.4 cm??? LV Systolic Volume MOD 2C 61.6 cm??? LV Ejection Fraction MOD 2C 29.6 % LV Cardiac Index MOD 2C 1267.7 cm???/min???m??? LV Diastolic Length 2C 8.6 cm LV Systolic Length 2C 8.2 cm M-MODE Aortic Root Diameter MM 3.8 cm LA Systolic Diameter MM 3.5 cm LA Ao Ratio MM 0.9 AV Cusp Separation MM 1.9 cm DOPPLER AV Peak Velocity 92.4 cm/s AV Peak Gradient 3.4 mmHg AV Mean Velocity 59.8 cm/s AV Mean Gradient 1.7 mmHg AV Velocity Time Integral 15.9 cm LVOT Peak Velocity 84.7 cm/s LVOT Peak Gradient 2.9 mmHg LVOT Velocity Time Integral 14.1 cm LVOT Stroke Volume 46.5 cm??? LVOT Stroke Volume Index 23.5 ml/m??? LVOT Cardiac Index 2278.6 cm???/min???m??? AV Area Cont Eq vti 2.9 cm??? AV Area Cont Eq pk 3.0 cm??? MV Area PHT 5.1 cm??? Mitral E Point Velocity 39.8 cm/s Mitral A Point Velocity 65.1 cm/s Mitral E to A Ratio 0.6 MV Deceleration Time 149.1 ms TR Peak Velocity 201.5 cm/s TR Peak Gradient 16.2 mmHg FINDINGS Left Ventricle Left ventricular ejection fraction is estimated at 30-35%. Left ventricular cavity size normal. Left ventricular wall thickness normal. Moderately reduced global left ventricular systolic function. Right Ventricle Right ventricle not well visualized. Mild right ventricular dilatation. Right ventricular systolic pressure within normal limits. Right Atrium Mild right atrial dilatation. Left Atrium Mild left atrial dilatation. Mitral Valve Structurally normal mitral valve. Mild mitral regurgitation. No mitral stenosis. Aortic Valve Trileaflet aortic valve. No aortic valve stenosis or regurgitation. Diffuse thickening (sclerosis) of the aortic valve cusps without reduced excursion. No aortic regurgitation. Tricuspid Valve Structurally normal tricuspid valve. Mild tricuspid regurgitation. No tricuspid stenosis. Pulmonic Valve Structurally normal pulmonic valve. Trace pulmonic regurgitation. No pulmonic stenosis. Pericardium Minimal pericardial effusion. No pleural effusion. Aorta Mild aortic dilatation at the level of the sinuses of valsalva (root). CONCLUSIONS Impaired LV function with EF between 30 to 35% Aortic sclerosis Previewed by: Dr. José Miguel Kelley MD (Electronically Signed) Final Date: 02 March 2025 18:45
[2025-03-03 07:09] LABS: HGB 9.5 g/dL (13.0-17.0); MCHC 32.8 g/dL (32.0-37.0); MCV 91.5 fL (80.0-97.0); Mean Platelet Volume 10.4 fL (9.5-12.2); RBC 3.17 10*6/uL (4.40-5.60); RDW 15.3 % (11.5-14.5); WBC 8.05 10*3/uL (4.50-10.00)
[2025-03-03 07:26] LABS: ALT 21 U/L (4-49); AST 52 U/L (17-59); African American GFR (CKD) >90 (>60 ml/min/1.73 sqM); Albumin 1.8 g/dL (3.5-5.0); Alkaline Phosphatase 97 U/L (38-126); Anion Gap 5 mmol/L; Blood Urea Nitrogen 9 mg/dL (9-20); Calcium 7.1 mg/dL (8.4-10.2); Carbon Dioxide 23 mmol/L (22-30); Chloride 106 mmol/L (98-107); Glucose 84 mg/dL (74-99); Non-African American GFR(CKD) >90 (>60 ml/min/1.73 sqM); Phosphorus 1.9 mg/dL (2.5-4.5); Potassium 3.6 mmol/L (3.5-5.1); Sodium 134 mmol/L (137-145); Total Protein 4.2 g/dL (6.3-8.2)
[2025-03-03 07:30] LABS: Platelet Count 67 10*3/uL (140-440)
[2025-03-03] MEDS: DAPAGLIFLOZIN PROPANEDIOL 5 MG TABLET PO SCH (07:47)
[2025-03-03] MEDS: METOPROLOL SUCCINATE (ER) 25 MG TAB.ER.24H PO SCH (07:47)
[2025-03-03] MEDS: ARTIFICIAL TEARS-HYPROMELLOSE DROPS 15 ML BTL BOTH EYES PRN (11:22)
[2025-03-03] MEDS: lisinopriL 5 MG TAB PO SCH (11:28)
--- NOTE | 2025-03-03 11:36 | P.PN ---
Subjective Progress Note Date: 03/03/25 Patient is a 70 year old male with no significant past medical history presented to the ED after a fall. Patient reports having a fall 9 days ago. He denies losing consciousness, hitting his head, fainting. He was not able to get up and was lying on the floor for 9 days. He has his own place but lives alone. His neighbour then found him and called the EMS. EMS reported that he was found to be covered in stool. Patient states he quit drinking in October and is still smoking occasionally. Additionally, he mentions having black stools. He had an echocardiogram done in 2019 that showed EF 55-60%, mild concentric left ventricular hypertrophy, right ventricle is mildly enlarged, mild TR, ascending aorta is dilated measuring up to 4 cm. He also mentioned undergoing "surgery for hernia years ago and reportedly a suture wasn't removed and he did not get it evaluated, and now he experiences bleeding at the umbilicus if he has any trauma." Denies fever, chills, shortness of breath, cough, chest pain, p alpitations, abdominal pain, nausea, vomiting, hematuria, dysuria, hematochezia, melena, headache, slurred speech, numbness, tingling, dizziness, lightheadedness, blurred vision, double vision. ED documentation reviewed. In the ED patient was treated with potassium chloride 40 meq PO, potassium chloride 20 meq IV, 0.9 normal saline. 03/01/25 - Patient seen and examined at bedside. He has no complaints of chest pain, shortness of breath, nausea, vomiting. 03/02/2025 - Patient seen and examined at bedside. No complaints. Eating and drinking well. 03/03/2025patient seen at bedside, no complaints, eating and drinking. Cardiology consulted for echo findings. Waiting for ANAND approval. Review of systems: Pertinent positives and negatives as discussed in HPI, a complete review of systems was performed and all other systems are negative. Physical examination: Vital signs reviewed General: cachectic, nontoxic, no distress, appears at stated age Cardiovascular: S1 S2 reg, no murmur Lungs: CTA bilateral, no rhonchi, no rales, no accessory muscle use Abdominal: soft, non-tender to palpation, dried blood at the umbilicus Extremities: No cyanosis, clubbing, or pedal edema. Neuro: Alert, Oriented, Gross neurological examination did not reveal any focal deficits. Psych: well appearing, appropriate affect Todays significant findings: Labs -hemoglobin 9.5, potassium 3.6, phosphorus 1.9, calcium 7.1, albumin 1.8 Echocardiogram finding of impaired LV function with EF 30 to 35%, aortic sclerosis Assessment/Plan: Patient is a 70 year old male with no significant past medical history presented to the ED after a fall. Active: #. Failure to thrive #. Mechanical fall #. Severe protein calorie malnutrition Initial CK [address] shows no acute intracranial process Ensure oral supplement TSH, Vitamin B12, urinalysis are WNL Fall precautions Social work consulted PT and OT consulted, suggest subacute rehab # New systolic heart failure, not in exacerbation # Troponin elevation, tetoley Type II NSTEMI Initial Troponin I 0.055 => 0.043 remains relatively stable Continue telemetry monitoring Continue aspirin 81 mg daily, and atorvastatin 40 mg daily Echocardiogram finding of impaired LV function with EF 30 to 35%, aortic sclerosis Begin metoprolol 12.5 mg twice daily, lisinopril 5 mg daily, Farxiga 5 mg daily Cardiology consulted #. Normocytic anemia, likely due to poor nutrition, low suspicion for GI bleed Patient reports black stools Iron studies with high saturation, LDH 328, retic count 1.76 is less than expected Haptoglobin ordered Protonix 40 mg IV BID Monitor CBC Transfuse for Hb < 7 #.Severe hypokalemia, resolved #Hypomagnesemia, resolved Initial EKG findings of frequent PVCs, ST depression in leads II, III, V4-6; flattened T waves diffusely, QTc 454 ms Received potassium chloride 40 meq PO, potassium chloride 20 meq IV in the ED Discontinue potassium chloride 40 meq PO QID Completed potassium chloride 20 mEq IV 4 times Given magnesium 1 g Continue telemetry monitoring Repeat potassium Phosphate ordered Monitor CMP #. Hypocalcemia, normal with corrected calcium, resolved Corrected calcium for albumin is 8.9, WNL Ionized calcium reviewed Monitor CMP #. Possible prerenal DNEVER, resolved #. Dehydration Creatinine in 2019- 0.6 On admission creatinine 1.16 Received 1L 0.9 NS bolus in the ED Monitor BMP #. Lactic acidosis, resolved #. HAGMA + metbolic alkalosis, resolved Albumin corrected anion gap 15.8 Albumin corrected delta gap 3.8 Lactic acid 6.1 Received 1L 0.9 NS bolus in the ED Trend lactic acid #. Coagulopathy #. Thrombocytopenia Alcohol use for 50+ years, quit in Oct 2024 Patient denies any abdominal pain Initiate Folic acid, Thiamine, multivitamins Monitor Coagulation panel F: P.o. E: Replete K, calcium and magnesium N: Heart healthy diet A: Bed rest DVT prophylaxis: SCD GI prophylaxis: Discontinued CODE STATUS: FULL CODE Discussed with: Patient Anticipated discharge place: Likely subacute rehab, potentially Wednesday Gaurav Orellana MD Internal Medicine Resident, PGY1 Dictation was produced using [employer] dictation software. please excuse any grammatical, word or spelling errors. I have seen and evaluated the patient today. Discussed with the resident and agree with the residents finding and plan as documented in the resident's note. Changes highlighted in blue font. Objective - Vital Signs Vital signs: Vital Signs Temp 99.1 F 03/03/25 03:29 Pulse 97 03/03/25 03:29 Resp 16 03/03/25 03:29 BP 114/75 03/03/25 03:29 Pulse Ox 98 03/03/25 03:29 FiO2 Intake & Output 03/02/25 03/02/25 03/03/25 06:59 18:59 06:59 Intake Total 200 798 860 Balance 200 798 860 Weight 83 kg 82.7 kg Intake: IV 200 100 320 Potassium Chloride 20 meq 200 100 In Water For Injection 1 100ml.bag @ 50 mls/hr IVPB Q2H [facility] Rx#: [id number] Sodium Chloride 0.9% 1, 320 000 ml @ 20 mls/hr IV . Q24H [facility] Rx#:[id number] Intake, IV Titration 100 Amount Magnesium Sulfate-D5w Pmx 100 1 gm In Dextrose/Water 1 100ml.bag @ 100 mls/hr IVPB ONCE ONE Rx#: [id number] Oral 598 540 Other: Voiding Method External Catheter External Catheter External Catheter # Voids 1 # Bowel Movements 1 3 - Labs CBC & Chem 7: 03/03/25 05:26 03/03/25 05:26 Labs: Abnormal Lab Results - Last 24 Hours (Table) 03/02/25 03/02/25 03/02/25 Range/Units 06:34 06:34 06:34 RBC 3.47 L (4.40-5.60) 10*6/uL Hgb 10.1 L (13.0-17.0) g/dL Hct 31.0 L (39.6-50.0) % Plt Count 67 L (140-440) 10*3/uL Potassium 3.1 L 3.1 L (3.5-5.1) mmol/L Chloride 111 H (98-107) mmol/L Calcium 6.7 L (8.4-10.2) mg/dL Phosphorus (2.5-4.5) mg/dL Magnesium 1.5 L (1.6-2.3) mg/dL 03/02/25 Range/Units 13:26 RBC (4.40-5.60) 10*6/uL Hgb (13.0-17.0) g/dL Hct (39.6-50.0) % Plt Count (140-440) 10*3/uL Potassium (3.5-5.1) mmol/L Chloride (98-107) mmol/L Calcium (8.4-10.2) mg/dL Phosphorus 2.0 L (2.5-4.5) mg/dL Magnesium (1.6-2.3) mg/dL
[2025-03-04 07:25] LABS: HCT 27.4 % (39.6-50.0); Immature Platelet Fraction 2.3 % (1.1-6.1); MCHC 32.8 g/dL (32.0-37.0); MCV 91.3 fL (80.0-97.0); Mean Platelet Volume 10.5 fL (9.5-12.2); RDW 15.4 % (11.5-14.5); WBC 5.55 10*3/uL (4.50-10.00)
[2025-03-04 07:34] LABS: Platelet Count 70 10*3/uL (140-440)
[2025-03-04 07:40] LABS: ALT 19 U/L (4-49); AST 36 U/L (17-59); African American GFR (CKD) >90 (>60 ml/min/1.73 sqM); Albumin 1.6 g/dL (3.5-5.0); Alkaline Phosphatase 101 U/L (38-126); Anion Gap 4 mmol/L; Blood Urea Nitrogen 10 mg/dL (9-20); Calcium 6.9 mg/dL (8.4-10.2); Carbon Dioxide 24 mmol/L (22-30); Chloride 107 mmol/L (98-107); Glucose 84 mg/dL (74-99); Magnesium 1.5 mg/dL (1.6-2.3); Non-African American GFR(CKD) >90 (>60 ml/min/1.73 sqM); Phosphorus 2.8 mg/dL (2.5-4.5); Potassium 2.8 mmol/L (3.5-5.1); Sodium 135 mmol/L (137-145); Total Bilirubin 1.3 mg/dL (0.2-1.3); Total Protein 4.1 g/dL (6.3-8.2)
[2025-03-04] MEDS: POTASSIUM CHLORIDE 10 MEQ in WATER FOR INJECTION 1 100ML.BAG IVPB SCH (10:18)
[2025-03-04] MEDS: POTASSIUM CHLORIDE ER 20 MEQ TAB.ER PO STA ×2 (10:19→22:39)
[2025-03-04] MEDS: MAGNESIUM SULFATE-D5W PMX 1 GM in DEXTROSE/WATER 1 100ML.BAG IVPB SCH (10:24)
[2025-03-04] MEDS: SPIRONOLACTONE 25 MG TAB PO SCH (11:36)
--- NOTE | 2025-03-04 11:36 | P.PN ---
Subjective Progress Note Date: 03/04/25 Subjective: Patient seen and examined at bedside. He claims that he is having upset stomach. No nausea or vomiting. Minimal abdominal pain. He is having bowel movements better small amount. Pertinent positives and negatives as discussed above, a complete review of systems was performed and all other systems are negative. Vitals Signs Reviewed. General: Nontoxic, no distress, appears at stated age, chronically ill-appearing Derm: Warm, dry Head: Atraumatic, normocephalic, symmetric Eyes: EOMI, no lid lag, anicteric sclera Mouth: No lip lesion, mucus membranes moist Cardiovascular: S1S2 reg, no murmur Lungs: CTA bilateral, no rhonchi, no rales, no accessory muscle use Abdominal: Soft, nontender to palpation, no guarding, no appreciable organomegaly Ext: No gross muscle atrophy, 2+ pitting edema, no contractures Neuro: CN II-XI grossly intact, no focal neuro deficits Psych: Alert, oriented, appropriate affect Data Reviewed Today: Pertinent Labs: WBC 5.55, hemoglobin 9, platelets 70, sodium 135, potassium 2.8, magnesium 1.5, creatinine 0.81, albumin 1.6 Imaging: No new imaging Assessment and Plan: Active: Persistent hypokalemia Severe hypokalemia, resolved Hypomagnesemia - Concerning for renal losses - Potassium did come up with significant amount of repletion but now is going down again. - Will get urine potassium, urine and serum osmolality - Nephrology also consulted - Give another 40 mEq oral potassium and 40 mill equivalent IV potassium - 3 g of IV magnesium sulfate also ordered - Repeat labs tomorrow New diagnosis of HFrEF, not in exacerbation Cardiology consulted - Unclear if ischemic versus nonischemic - On Farxiga 5 mg daily, lisinopril 5 mg daily, metoprolol succinate 12.5 twice daily, Aldactone 25 daily Type II NSTEMI - No active chest pain - On aspirin 81 mg, atorvastatin 40 mg daily Severe protein calorie malnutrition Anasarca Failure to thrive - On protein supplements 3 times daily with meals - PT/OT recommending subacute rehab Normocytic anemia, stable Thrombocytopenia, stable - Likely in the setting of bone marrow hypoproliferation - Likely secondary to failure to thrive Resolved: Hypocalcemia Prerenal DENVER Lactic acidosis Metabolic acidosis DVT ppx: Subcu heparin Code status: Full code Anticipated discharge place: Pending clinical course pending clinical course Anticipated discharge time: Objective - Vital Signs Vital signs: Vital Signs Temp 97.9 F 03/04/25 11:22 Pulse 82 03/04/25 11:22 Resp 18 03/04/25 11:22 BP 120/77 03/04/25 11:22 Pulse Ox 98 03/04/25 11:22 FiO2 Intake & Output 03/03/25 03/04/25 03/04/25 18:59 06:59 18:59 Intake Total 615 30 332 Output Total 452 Balance 615 -422 332 Weight 83 kg Intake: IV 15 30 10 Invasive Line 1 5 10 Invasive Line 2 10 10 Invasive Line 3 10 Sodium Chloride 0.9% 1, 10 000 ml @ 20 mls/hr IV . Q24H [facility] Rx#:[id number] Oral 600 322 Output: Urine 452 Other: Voiding Method Diaper Diaper Diaper # Voids 2 # Bowel Movements 1 - Labs CBC & Chem 7: 03/04/25 06:20 03/04/25 06:20 Labs: Abnormal Lab Results - Last 24 Hours (Table) 03/04/25 03/04/25 Range/Units 06:20 06:20 RBC 3.00 L (4.40-5.60) 10*6/uL Hgb 9.0 L (13.0-17.0) g/dL Hct 27.4 L (39.6-50.0) % Plt Count 70 L (140-440) 10*3/uL Sodium 135 L (137-145) mmol/L Potassium 2.8 L (3.5-5.1) mmol/L Calcium 6.9 L (8.4-10.2) mg/dL Magnesium 1.5 L (1.6-2.3) mg/dL Total Protein 4.1 L (6.3-8.2) g/dL Albumin 1.6 L (3.5-5.0) g/dL
--- NOTE | 2025-03-04 12:29 | P.NPCON ---
History of Present Illness - Reason for Consult hypokalemia - History of Present Illness Reason for consultation: Hypokalemia History of present is: Patient is a 70-year-old male seen in renal consultation for electrolyte imbalance. Patient was noted to be hypokalemic, hypophosphatemic and hypomagnesemic this admission. Patient states when he was at home he went to answer his front door and subsequently fell. He crawled himself onto the couch and was on the couch for about 10 days straight. Patient states he was not eating or drinking much at all those days. He denies taking any medications. D enies use of any diuretics. He does admit to loose bowel movements. No vomiting. Denies history of diabetes or coronary artery disease. Denies use of nonsteroidals. Patient does have systolic CHF with ejection fraction of 30 to 35%. Vital signs are stable. General: No acute distress. HEENT: Head exam is unremarkable. LUNGS: No audible rhonchi or wheezes. HEART: Rate and Rhythm are regular. ABDOMEN: Nontender. EXTREMITITES: Trace edema. Past Medical History Past Medical History: No Reported History History of Any Multi-Drug Resistant Organisms: None Reported Past Surgical History: Hernia Repair Past Anesthesia/Blood Transfusion Reactions: No Reported Reaction Past Psychological History: No Psychological Hx Reported Smoking Status: Current every day smoker Past Alcohol Use History: Occasional Past Drug Use History: None Reported - Past Family History Mother Family Medical History: No Reported History Father Family Medical History: No Reported History Medications and Allergies Home Medications Medication Instructions Recorded Confirmed Type No Known Home Medications 02/28/25 02/28/25 History Allergies Allergy/AdvReac Type Severity Reaction Status Date / Time Fish Containing Products AdvReac Nausea & Verified 02/28/25 20:52 [Fish] Vomiting Physical Exam Vitals: Vital Signs Temp Pulse Resp BP Pulse Ox 03/04/25 11:22 97.9 F 82 18 120/77 98 03/04/25 08:04 97.7 F 84 18 121/84 98 03/04/25 04:00 98 F 85 18 111/71 97 03/04/25 00:00 98 F 69 16 91/61 98 03/03/25 19:38 97.7 F 84 16 102/67 97 03/03/25 14:53 98.3 F 88 16 121/77 100 Intake and Output 03/03/25 03/04/25 03/04/25 22:59 06:59 14:59 Intake Total 200 10 332 Output Total 452 Balance 200 -442 332 Intake: IV 20 10 10 Invasive Line 1 10 Invasive Line 2 10 Invasive Line 3 10 Sodium Chloride 0.9% 1, 10 000 ml @ 20 mls/hr IV . Q24H [facility] Rx#:[id number] Oral 180 322 Output: Urine 452 Other: Voiding Method Diaper Diaper Diaper # Bowel Movements 1 1 Weight 83 kg Results - Lab Results Most recent lab results Calcium 6.9 mg/dL (8.4-10.2) L 03/04/25 06:20 Phosphorus 2.8 mg/dL (2.5-4.5) 03/04/25 06:20 Magnesium 1.5 mg/dL (1.6-2.3) L 03/04/25 06:20 03/04/25 06:20 03/04/25 06:20 Assessment and Plan Plan: Assessment: 1. Hypokalemia from poor intake, hypomagnesemia. Urine potassium low at 3.4 on admission suggestive of nonrenal potassium wasting. Potassium level initially improved with replacement but is now low again which can be due to paradoxical hypokalemia post potassium repletion. TSH normal. No evidence of alkalosis. Another contributing factor can be insulin production now that he is eating causing potassium shifting into the cells. 2. Hypomagnesemia from poor intake and GI losses. 3. Hypophosphatemia on admission from poor intake. Replaced. Improved. 4. Anemia. Rule out iron deficiency. 5. Cardiomyopathy with ejection fraction of 30 to 35%. 6. Severe protein calorie malnutrition. 7. Mild prerenal DEN[place] from hypovolemia, improved with IV hydration. Plan: Patient currently receiving IV and also oral potassium. Magnesium also being replaced. Replace over 6-8 hours. Repeat potassium level this evening and continue replacing. Maintain Aldactone. Also on ALETHEA inhibitor. Encouraged oral intake. Thank you for the consultation. I will continue to follow the patient with you during his hospital stay.
[2025-03-04 15:22] LABS: African American GFR (CKD) >90 (>60 ml/min/1.73 sqM); Anion Gap 8 mmol/L; Blood Urea Nitrogen 10 mg/dL (9-20); Calcium 7.2 mg/dL (8.4-10.2); Carbon Dioxide 23 mmol/L (22-30); Chloride 103 mmol/L (98-107); Glucose 87 mg/dL (74-99); Non-African American GFR(CKD) >90 (>60 ml/min/1.73 sqM); Potassium 3.2 mmol/L (3.5-5.1); Sodium 134 mmol/L (137-145)
[2025-03-04] MEDS ORDERED: Potassium Replacement Protocol 1 EACH MISC MISCELLANE PRN (15:42)
--- NOTE | 2025-03-04 15:45 | P.CRDCN ---
History of Present Illness Consult date: 03/03/25 History of present illness: HISTORY OF PRESENTING ILLNESS: 17-year-old presented to ER after a fall. Denied losing consciousness, he was not able to get up from the ground and laid on the ground for 9 days. Never called the EMS. He was found covered in stools. There was also possible concern of black tarry stool. He does use alcohol on a regular basis however he reports that he has quit drinking since October. He also reports occasional smoking. His last echo from 2019 showed an EF of 55% with mild concentric LVH, ascending aorta 4 cm. On this admission he had echocardiogram performed which showed an EF of 30 to 35%. For this cardiology was consulted. Pertinent vitals: BP 102/67, heart rate 91 beats Admission Labs: Potassium 1.4, lactate 2.2 troponin 0.035 with flat pattern suggestive of severe dehydration. CPK 183 Iron sat is high, transferrin is low, TIBC is low, ferritin is high suggestive of anemia of chronic disease TSH 0.9, Admission EKG: Sinus rhythm with ventricular bigeminy. REVIEW OF SYSTEMS: 14 point review of system is negative except what is mentioned above in HPI. PHYSICAL EXAMINATION: Neck: Brisk carotid upstroke, no jugular venous distention. Lungs: Clear to auscultation. Heart: Regular rate and rhythm, S1-S2, , no murmur or rub. Abdomen: Soft nontender, positive bowel sounds. Extremities: No edema, intact distal pulses. Neuro: Alert, oritented, no focal deficits. Detailed neuro exam was not performed. ASSESSMENT: # Cardiomyopathy with a EF of 30 to 35%, most likely stress-induced # Frequent PVCs # Elevated troponin, less likely related to ACS. Most likely because of rhabdomyolysis # Mild rhabdomyolysis # Anemia of chronic disease # Electrolyte imbalance with hypokalemia hypomagnesemia # Dehydration from fall and poor oral intake # Generalized weakness and mechanical fall # Failure to thrive, severe protein calorie malnutrition # History of alcohol use and smoking PLAN: Replace magnesium, Obtain NT-proBNP, lipids, A1c levels Continue aspirin, Lipitor, lisinopril 5 mg, Continue metoprolol 12.5 mg daily Continue Farxiga 5 Recommend outpatient ischemic evaluation. Refrain from alcohol and smoking Consider 7-day extended Holter monitor at the time of discharge for PVC rose Grace MD, FACC, RPVI Thank you for allowing [facility] to participate in this patient's care. Feel free to reach out in case of any followup questions. Past Medical History Past Medical History: No Reported History History of Any Multi-Drug Resistant Organisms: None Reported Past Surgical History: Hernia Repair Past Anesthesia/Blood Transfusion Reactions: No Reported Reaction Past Psychological History: No Psychological Hx Reported Smoking Status: Current every day smoker Past Alcohol Use History: Occasional Past Drug Use History: None Reported - Past Family History Mother Family Medical History: No Reported History Father Family Medical History: No Reported History Medications and Allergies Home Medications Medication Instructions Recorded Confirmed Type No Known Home Medications 02/28/25 02/28/25 History Allergies Allergy/AdvReac Type Severity Reaction Status Date / Time Fish Containing Products AdvReac Nausea & Verified 02/28/25 20:52 [Fish] Vomiting Physical Exam Vitals: Vital Signs Temp Pulse Resp BP Pulse Ox 03/03/25 11:27 98.6 F 91 16 102/67 99 03/03/25 07:48 98.8 F 106 H 18 103/75 99 03/03/25 03:29 99.1 F 97 16 114/75 98 03/02/25 23:54 98.6 F 98 16 121/78 95 03/02/25 20:00 98.1 F 94 16 113/76 99 03/02/25 16:00 85 16 106/75 99 Intake and Output 03/02/25 03/03/25 03/03/25 22:59 06:59 14:59 Intake Total 160 700 255 Balance 160 700 255 Intake: IV 160 160 15 Invasive Line 1 5 Invasive Line 2 10 Sodium Chloride 0.9% 1, 160 160 000 ml @ 20 mls/hr IV . Q24H [facility] Rx#:[id number] Oral 540 240 Other: Voiding Method External Catheter External Catheter Diaper # Bowel Movements 1 3 Weight 82.7 kg Results 03/04/25 06:20 03/04/25 14:31 Cardiac Enzymes 03/03/25 Range/Units 05:26 AST 52 (17-59) U/L CBC 03/03/25 Range/Units 05:26 WBC 8.05 (4.50-10.00) 10*3/uL RBC 3.17 L (4.40-5.60) 10*6/uL Hgb 9.5 L (13.0-17.0) g/dL Hct 29.0 L (39.6-50.0) % Plt Count 67 L (140-440) 10*3/uL Comprehensive Metabolic Panel 03/02/25 03/03/25 Range/Units 13:26 05:26 Sodium 134 L (137-145) mmol/L Potassium 3.8 3.6 (3.5-5.1) mmol/L Chloride 106 (98-107) mmol/L Carbon Dioxide 23 (22-30) mmol/L BUN 9 (9-20) mg/dL Creatinine 0.81 (0.66-1.25) mg/dL Glucose 84 (74-99) mg/dL Calcium 7.1 L (8.4-10.2) mg/dL AST 52 (17-59) U/L ALT 21 (4-49) U/L Alkaline Phosphatase 97 (38-126) U/L Total Protein 4.2 L (6.3-8.2) g/dL Albumin 1.8 L (3.5-5.0) g/dL Current Medications Generic Name Dose Route Start Last Admin Trade Name Freq PRN Reason Stop Dose Admin Artificial Tears 2 drops 03/03/25 10:20 03/03/25 11:22 Artificial Tears-Hypromellose Drops 15 Ml Btl BOTH EYES 2 drops TID PRN Administration Dry Eye(s) Aspirin 81 mg 03/01/25 11:15 03/03/25 07:47 Aspirin 81 Mg PO 81 mg DAILY [facility] Administration Atorvastatin Calcium 40 mg 03/01/25 11:15 03/03/25 07:46 Atorvastatin 40 Mg Tab PO 40 mg DAILY [facility] Administration Dapagliflozin 5 mg 03/03/25 09:00 03/03/25 07:47 Dapagliflozin Propanediol 5 Mg Tablet PO 5 mg DAILY [facility] Administration Folic Acid 1 mg 02/28/25 20:15 03/03/25 07:46 Folic Acid 1 Mg Tab PO 1 mg DAILY [facility] Administration Haloperidol 5 mg 02/28/25 23:05 Haloperidol 5 Mg Tab PO QID PRN Agitation or Acute Anxiety Haloperidol Lactate 5 mg 02/28/25 23:05 Haloperidol Lactate 5 Mg/Ml 1 Ml Vial IM Q6HR PRN Agitation or Acute Psychosis Lisinopril 5 mg 03/03/25 09:00 03/03/25 11:28 Lisinopril 5 Mg Tab PO Not Given DAILY [facility] Metoprolol Succinate 12.5 mg 03/03/25 09:00 03/03/25 07:47 Metoprolol Succinate (Er) 25 Mg Tab.Er.24h PO 12.5 mg BID [facility] Administration Multivitamins 1 each 02/28/25 20:45 03/03/25 07:47 Multivitamins, Thera 1 Each Tab PO 1 each DAILY [facility] Administration Naloxone HCl 0.2 mg 02/28/25 19:23 Naloxone 0.4 Mg/Ml 1 Ml Vial IV Q2M PRN Opioid Reversal Nystatin 1 applic 03/02/25 09:00 03/03/25 07:47 Nystatin 100,000 Unit/Gm Powd 15 Gm TOPICAL 1 applic BID [facility] Administration Protocol Petrolatum 1 applic 03/02/25 03:12 03/02/25 08:11 Zinc Oxide Paste (Z-Guard) 1 Applic TOPICAL 1 applic Q2HR PRN Administration Wound Healing Protocol Thiamine HCl 100 mg 02/28/25 20:15 03/03/25 07:47 Thiamine 100 Mg Tab PO 100 mg DAILY [facility] Administration Intake and Output 03/02/25 03/03/25 03/03/25 22:59 06:59 14:59 Intake Total 160 700 255 Balance 160 700 255 Intake: IV 160 160 15 Invasive Line 1 5 Invasive Line 2 10 Sodium Chloride 0.9% 1, 160 160 000 ml @ 20 mls/hr IV . Q24H [facility] Rx#:[id number] Oral 540 240 Other: Voiding Method External Catheter External Catheter Diaper # Bowel Movements 1 3 Weight 82.7 kg 03/03/25 05:26 03/03/25 05:26
[2025-03-04] MEDS: POTASSIUM CHLORIDE ER 20 MEQ TAB.ER PO SCH (15:54)
[2025-03-04] MEDS ORDERED: ALPRAZolam 0.25 MG TAB PO PRN (16:34)
[2025-03-04] MEDS ORDERED: NITROGLYCERIN SL TABS 0.4 MG TAB SUBLINGUAL PRN (16:34)
--- NOTE | 2025-03-04 16:38 | P.PN ---
Subjective Progress Note Date: 03/04/25 HISTORY OF PRESENTING ILLNESS: 70-year-old presented to ER after a fall. Denied losing consciousness, he was not able to get up from the ground and laid on the ground for 9 days. Never called the EMS. He was found covered in stools. There was also possible concern of black tarry stool. He does use alcohol on a regular basis however he reports that he has quit drinking since October. He also reports occasional smoking. His last echo from 2019 showed an EF of 55% with mild concentric LVH, ascending aorta 4 cm. On this admission he had echocardiogram performed which showed an EF of 30 to 35%. For this cardiology was consulted. Pertinent vitals: BP 102/67, heart rate 91 beats Admission Labs: Potassium 1.4, lactate 2.2 troponin 0.035 with flat pattern suggestive of severe dehydration. CPK 183 Iron sat is high, transferrin is low, TIBC is low, ferritin is high suggestive of anemia of chronic disease TSH 0.9, Admission EKG: Sinus rhythm with ventricular bigeminy. Progress note 03/04/2025 Patient still continues to have low potassium and magnesium. Blood pressure and heart rate are better controlled Appears to be volume optimized. Kidney function is stable. PHYSICAL EXAMINATION: Neck: Brisk carotid upstroke, no jugular venous distention. Lungs: Clear to auscultation. Heart: Regular rate and rhythm, S1-S2, , no murmur or rub. Abdomen: Soft nontender, positive bowel sounds. Extremities: No edema, intact distal pulses. Neuro: Alert, oritented, no focal deficits. Detailed neuro exam was not performed. ASSESSMENT: # Cardiomyopathy with a EF of 30 to 35%, most likely stress-induced # Frequent PVCs, likely from electrolyte imbalance # Elevated troponin, less likely related to ACS. Most likely because of rhabdomyolysis # Mild rhabdomyolysis # Anemia of chronic disease # Electrolyte imbalance with hypokalemia hypomagnesemia # Dehydration from fall and poor oral intake # Generalized weakness and mechanical fall # Failure to thrive, severe protein calorie malnutrition # History of alcohol use and smoking PLAN: Monitor kidney function electrolytes. Keep potassium at 4 magnesium at 2 Obtain NT-proBNP, lipids, A1c levels, urine drug screen Continue aspirin, Lipitor, lisinopril 5 mg, Continue metoprolol 12.5 mg daily, Continue Farxiga 5 Continue Aldactone 25 mg daily Plan for heart catheterization tomorrow. It appears that patient has tr ansportation issues and lives by himself and might not be able to follow-up on outpatient basis. Due to healthcare disparity plan for heart cath tomorrow. I tried to reach out to the patient's brother but his phone number is documented incorrectly in the chart Refrain from alcohol and smoking PT OT social work . Objective - Vital Signs Vital signs: Vital Signs Temp 97.7 F 03/04/25 08:04 Pulse 84 03/04/25 08:04 Resp 18 03/04/25 08:04 BP 121/84 03/04/25 08:04 Pulse Ox 98 03/04/25 08:04 FiO2 Intake & Output 03/03/25 03/04/25 03/04/25 18:59 06:59 18:59 Intake Total 615 30 100 Output Total 452 Balance 615 -422 100 Weight 83 kg Intake: IV 15 30 Invasive Line 1 5 10 Invasive Line 2 10 10 Sodium Chloride 0.9% 1, 10 000 ml @ 20 mls/hr IV . Q24H [facility] Rx#:[id number] Oral 600 100 Output: Urine 452 Other: Voiding Method Diaper Diaper Diaper # Voids 2 # Bowel Movements 1 - Labs CBC & Chem 7: 03/04/25 06:20 03/04/25 14:31 Labs: Abnormal Lab Results - Last 24 Hours (Table) 03/04/25 03/04/25 Range/Units 06:20 06:20 RBC 3.00 L (4.40-5.60) 10*6/uL Hgb 9.0 L (13.0-17.0) g/dL Hct 27.4 L (39.6-50.0) % Plt Count 70 L (140-440) 10*3/uL Sodium 135 L (137-145) mmol/L Potassium 2.8 L (3.5-5.1) mmol/L Calcium 6.9 L (8.4-10.2) mg/dL Magnesium 1.5 L (1.6-2.3) mg/dL Total Protein 4.1 L (6.3-8.2) g/dL Albumin 1.6 L (3.5-5.0) g/dL
[2025-03-04] MEDS: HEPARIN SODIUM,PORCINE 5,000 UNIT/ML 1 ML VIAL SQ SCH (20:20)
[2025-03-05] MEDS: SODIUM CHLORIDE 0.9% 1,000 ML in EMPTY BAG 1 BAG IV SCH (03:32)
[2025-03-05 05:57] LABS: Basophils # (A) 0.01 10*3/uL (0.00-0.10); Basophils % (A) 0.2 %; Eosinophils # (A) 0.01 10*3/uL (0.04-0.35); Eosinophils % (A) 0.2 %; HCT 28.2 % (39.6-50.0); HGB 9.2 g/dL (13.0-17.0); Lymphocytes # (A) 1.13 10*3/uL (0.90-5.00); Lymphocytes % (A) 22.1 %; MCH 30.2 pg (27.0-32.0); MCHC 32.6 g/dL (32.0-37.0); MCV 92.5 fL (80.0-97.0); Mean Platelet Volume 9.9 fL (9.5-12.2); Monocytes # (A) 0.39 10*3/uL (0.20-1.00); Monocytes % (A) 7.6 %; Neutrophils # (A) 3.54 10*3/uL (1.80-7.70); Neutrophils % (A) 69.1 %; RBC 3.05 10*6/uL (4.40-5.60); RDW 15.7 % (11.5-14.5); WBC 5.12 10*3/uL (4.50-10.00)
[2025-03-05 06:06] LABS: Platelet Count 74 10*3/uL (140-440)
[2025-03-05 06:18] LABS: ALT 22 U/L (4-49); AST 47 U/L (17-59); African American GFR (CKD) >90 (>60 ml/min/1.73 sqM); Albumin 1.7 g/dL (3.5-5.0); Alkaline Phosphatase 118 U/L (38-126); Anion Gap 3 mmol/L; Blood Urea Nitrogen 11 mg/dL (9-20); Carbon Dioxide 23 mmol/L (22-30); Chloride 107 mmol/L (98-107); Glucose 89 mg/dL (74-99); Magnesium 1.9 mg/dL (1.6-2.3); Non-African American GFR(CKD) >90 (>60 ml/min/1.73 sqM); Potassium 3.5 mmol/L (3.5-5.1); Sodium 133 mmol/L (137-145); Total Bilirubin 1.1 mg/dL (0.2-1.3); Total Protein 4.3 g/dL (6.3-8.2)
[2025-03-05 06:25] LABS: NT-Pro-B-Type Natriuretic Pept 1910 pg/mL
[2025-03-05] MEDS: POTASSIUM CHLORIDE ER 20 MEQ TAB.ER PO STA ×2 (08:27→11:58)
[2025-03-05 10:33] LABS: Chol/HDL Ratio 2.81 Ratio; LDL Cholesterol,Calculated 23.6 mg/dL (0.0-131.0)
--- NOTE | 2025-03-05 12:03 | P.PN ---
Subjective HISTORY OF PRESENT ILLNESS: 70-year-old presented to ER after a fall. Denied losing consciousness, he was not able to get up from the ground and laid on the ground for 9 days. Never called the EMS. He was found covered in stools. There was also possible concern of black tarry stool. He does use alcohol on a regular basis however he reports that he has quit drinking since October. He also reports occasional smoking. His last echo from 2019 showed an EF of 55% with mild concentric LVH, ascending aorta 4 cm. On this admission he had echocardiogram performed which showed an EF of 30 to 35%. For this cardiology was consulted. Pertinent vitals: BP 102/67, heart rate 91 beats Admission Labs: Potassium 1.4, lactate 2.2 troponin 0.035 with flat pattern suggestive of severe dehydration. CPK 183 Iron sat is high, transferrin is low, TIBC is low, ferritin is high suggestive of anemia of chronic disease TSH 0.9, Admission EKG: Sinus rhythm with ventricular bigeminy. Progress note 03/04/2025 Patient still continues to have low potassium and magnesium. Blood pressure and heart rate are better controlled Appears to be volume optimized. Kidney function is stable. 03/05/2025 Patient examined this morning at bedside. Patient currently denies chest pain or pressure. He denies shortness of breath. He is scheduled to undergo cardiac catheterization today with Dr. Grace. PHYSICAL EXAM: VITAL SIGNS: Reviewed. GENERAL: Well-developed in no acute distress. NECK: Supple. No JVD or thyromegaly LUNGS: Respirations even and unlabored. Lungs essentially clear to auscultation bilaterally. HEART: Regular rate and rhythm. S1 and S2 heard. EXTREMITIES: Normal range of motion. No clubbing or cyanosis. Peripheral pulses intact. No lower extremity edema ASSESSMENT: # Cardiomyopathy with a EF of 30 to 35%, most likely stress-induced # Frequent PVCs, likely from electrolyte imbalance # Elevated troponin, less likely related to ACS. Most likely because of rhabdomyolysis # Mild rhabdomyolysis # Anemia of chronic disease # Electrolyte imbalance with hypokalemia hypomagnesemia # Dehydration from fall and poor oral intake # Generalized weakness and mechanical fall # Failure to thrive, severe protein calorie malnutrition # History of alcohol use and smoking PLAN: Continue current cardiac medications including aspirin, Lipitor, Farxiga, lisinopril, metoprolol, and Aldactone Patient is scheduled to undergo cardiac catheterization today with Dr. Grace Further recommendations pending patient course Nurse practitioner note has been reviewed by physician. Signing provider agrees with the documented findings, assessment, and plan of care documented by [employer] as a scribe. Objective - Vital Signs Vital signs: Vital Signs Temp 97.7 F 03/05/25 08:00 Pulse 76 03/05/25 08:00 Resp 16 03/05/25 08:00 BP 124/77 03/05/25 08:00 Pulse Ox 99 03/05/25 08:00 FiO2 Intake & Output 03/04/25 03/05/25 03/05/25 18:59 06:59 18:59 Intake Total 674 540 Output Total 200 100 Balance 474 440 Weight 78 kg Intake: IV 10 Invasive Line 3 10 Intake, IV Titration 300 Amount Sodium Chloride 0.9% 1, 300 000 ml In Empty Bag 1 bag @ 75 mls/hr IV .[id number] [facility] Rx#:[id number] Oral 664 240 Output: Urine 200 100 Other: Voiding Method Diaper Diaper Diaper # Bowel Movements 2 - Labs CBC & Chem 7: 03/05/25 05:40 03/05/25 05:40 Labs: Abnormal Lab Results - Last 24 Hours (Table) 02/28/25 03/04/25 03/04/25 Range/Units 20:00 12:00 14:31 RBC (4.40-5.60) 10*6/uL Hgb (13.0-17.0) g/dL Hct (39.6-50.0) % Plt Count (140-440) 10*3/uL Eosinophils # (0.04-0.35) 10*3/uL Sodium 134 L (137-145) mmol/L Potassium 3.2 L (3.5-5.1) mmol/L Calcium 7.2 L (8.4-10.2) mg/dL Total Protein (6.3-8.2) g/dL Albumin (3.5-5.0) g/dL HDL Cholesterol (40.00-60.00) mg/dL Vitamin B1 24 L (38-122) ug/L Ur Random Potassium 17.2 L (25.0-125.0) mmol/L 03/04/25 03/05/25 03/05/25 Range/Units 20:44 05:40 05:40 RBC 3.05 L (4.40-5.60) 10*6/uL Hgb 9.2 L (13.0-17.0) g/dL Hct 28.2 L (39.6-50.0) % Plt Count 74 L (140-440) 10*3/uL Eosinophils # 0.01 L (0.04-0.35) 10*3/uL Sodium 133 L (137-145) mmol/L Potassium 3.2 L (3.5-5.1) mmol/L Calcium 7.0 L (8.4-10.2) mg/dL Total Protein 4.3 L (6.3-8.2) g/dL Albumin 1.7 L (3.5-5.0) g/dL HDL Cholesterol 19.90 L (40.00-60.00) mg/dL Vitamin B1 (38-122) ug/L Ur Random Potassium (25.0-125.0) mmol/L
--- NOTE | 2025-03-05 12:33 | P.PN ---
Subjective Patient is seen for follow-up for hypokalemia and hypomagnesemia. No significant complaints. Sodium is 133 and potassium is 3.5 today. Objective - Vital Signs Vital signs: Vital Signs Temp 97.7 F 03/05/25 08:00 Pulse 78 03/05/25 12:00 Resp 16 03/05/25 12:00 BP 124/73 03/05/25 12:00 Pulse Ox 99 03/05/25 12:00 FiO2 Intake & Output 03/04/25 03/05/25 03/05/25 18:59 06:59 18:59 Intake Total 674 540 Output Total 200 100 Balance 474 440 Weight 78 kg Intake: IV 10 Invasive Line 3 10 Intake, IV Titration 300 Amount Sodium Chloride 0.9% 1, 300 000 ml In Empty Bag 1 bag @ 75 mls/hr IV .[id number] [facility] Rx#:[id number] Oral 664 240 Output: Urine 200 100 Other: Voiding Method Diaper Diaper Diaper # Bowel Movements 2 - Exam Patient is awake, comfortable, no acute distress Examination of the heart S1 and S2 Examination of the lungs bilateral breath sounds are heard Abdomen is soft nontender Examination of the lower extremities shows 1+ edema, chronic skin changes - Labs CBC & Chem 7: 03/05/25 05:40 03/05/25 05:40 Labs: Abnormal Lab Results - Last 24 Hours (Table) 02/28/25 03/04/25 03/04/25 Range/Units 20:00 12:00 14:31 RBC (4.40-5.60) 10*6/uL Hgb (13.0-17.0) g/dL Hct (39.6-50.0) % Plt Count (140-440) 10*3/uL Eosinophils # (0.04-0.35) 10*3/uL Sodium 134 L (137-145) mmol/L Potassium 3.2 L (3.5-5.1) mmol/L Calcium 7.2 L (8.4-10.2) mg/dL Total Protein (6.3-8.2) g/dL Albumin (3.5-5.0) g/dL HDL Cholesterol (40.00-60.00) mg/dL Vitamin B1 24 L (38-122) ug/L Ur Random Potassium 17.2 L (25.0-125.0) mmol/L 03/04/25 03/05/25 03/05/25 Range/Units 20:44 05:40 05:40 RBC 3.05 L (4.40-5.60) 10*6/uL Hgb 9.2 L (13.0-17.0) g/dL Hct 28.2 L (39.6-50.0) % Plt Count 74 L (140-440) 10*3/uL Eosinophils # 0.01 L (0.04-0.35) 10*3/uL Sodium 133 L (137-145) mmol/L Potassium 3.2 L (3.5-5.1) mmol/L Calcium 7.0 L (8.4-10.2) mg/dL Total Protein 4.3 L (6.3-8.2) g/dL Albumin 1.7 L (3.5-5.0) g/dL HDL Cholesterol 19.90 L (40.00-60.00) mg/dL Vitamin B1 (38-122) ug/L Ur Random Potassium (25.0-125.0) mmol/L Assessment and Plan Assessment: 1. Hypokalemia from poor intake, hypomagnesemia. Urine potassium low at 3.4 suggesting no renal potassium wasting. Potassium level initially improved with replacement but is now low again which can be due to paradoxical hypokalemia post potassium repletion. TSH normal. No evidence of alkalosis. Another contributing factor can be insulin production now that he is eating causing potassium shifting into the cells. 2. Hypomagnesemia from poor intake and GI losses. 3. Hypophosphatemia on admission from poor intake. Replaced. Improved. 4. Anemia. Rule out iron deficiency. 5. Cardiomyopathy with ejection fraction of 30 to 35%. 6. Severe protein calorie malnutrition. 7. Mild prerenal [place] from hypovolemia, improved with IV hydration. Plan: Replace potassium Continue with Aldactone and lisinopril Repeat labs in a.m. Encouraged increased oral intake
[2025-03-05 14:54] VITALS: BMI 22.1
--- NOTE | 2025-03-05 15:06 | P.PN ---
Subjective Progress Note Date: 03/05/25 Subjective: Patient seen and examined at bedside. He claims that he is having upset stomach. No nausea or vomiting. Minimal abdominal pain. He is having bowel movements better small amount. 03/05/2025patient seen and examined at bedside. Had bowel movement yesterday. No other complaints. Pertinent positives and negatives as discussed above, a complete review of systems was performed and all other systems are negative. Vitals Signs Reviewed. General: Nontoxic, no distress, appears at stated age, chronically ill-appearing Derm: Warm, dry Cardiovascular: S1S2 reg, no murmur Lungs: CTA bilateral, no rhonchi, no rales, no accessory muscle use Abdominal: Soft, nontender to palpation, no guarding, no appreciable organomegaly Ext: No gross muscle atrophy, 2+ pitting edema, no contractures Neuro: CN II-XI grossly intact, no focal neuro deficits Psych: Alert, oriented, appropriate affect Data Reviewed Today: Pertinent Labs: Hemoglobin 9.2, sodium 133, potassium 3.5 Imaging: No new imaging Assessment and Plan: Active: Persistent hypokalemia Severe hypokalemia, resolved Hypomagnesemia, resolved - Concerning for renal losses - Potassium did come up with significant amount of repletion but now is going down again. - Urine osmolality 5.13, random urine potassium 17.2 - Give another 40 mEq oral potassium - Repeat labs tomorrow - Nephrology also consulted New diagnosis of HFrEF, not in exacerbation - Unclear if ischemic versus nonischemic, catheterization planned for tomorrow - On Farxiga 5 mg daily, lisinopril 5 mg daily, metoprolol succinate 12.5 twice daily, Aldactone 25 daily Cardiology following Type II NSTEMI - No active chest pain - On aspirin 81 mg, atorvastatin 40 mg daily Severe protein calorie malnutrition Anasarca Failure to thrive - On protein supplements 3 times daily with meals - PT/OT recommending subacute rehab Normocytic anemia, stable Thrombocytopenia, stable - Likely in the setting of bone marrow hypoproliferation - Likely secondary to failure to thrive Resolved: Hypocalcemia Prerenal [place] Lactic acidosis Metabolic acidosis DVT ppx: Subcu heparin Code status: Full code Anticipated discharge place: Subacute rehab Anticipated discharge time:1 to 2 days Gaurav Orellana MD Internal Medicine Resident, PGY1 I have seen and evaluated the patient today. Discussed with the resident and agree with the residents finding and plan as documented in the resident's note. Changes highlighted in blue font. Objective - Vital Signs Vital signs: Vital Signs Temp 98.4 F 03/05/25 06:00 Pulse 75 03/05/25 06:00 Resp 18 03/05/25 03:37 BP 124/76 03/05/25 06:00 Pulse Ox 98 03/05/25 03:37 FiO2 Intake & Output 03/04/25 03/04/25 03/05/25 06:59 18:59 06:59 Intake Total 30 674 540 Output Total 452 200 100 Balance -422 474 440 Weight 83 kg 78 kg Intake: IV 30 10 Invasive Line 1 10 Invasive Line 2 10 Invasive Line 3 10 Sodium Chloride 0.9% 1, 10 000 ml @ 20 mls/hr IV . Q24H [facility] Rx#:[id number] Intake, IV Titration 300 Amount Sodium Chloride 0.9% 1, 300 000 ml In Empty Bag 1 bag @ 75 mls/hr IV .[id number] [facility] Rx#:[id number] Oral 664 240 Output: Urine 452 200 100 Other: Voiding Method Diaper Diaper Diaper # Bowel Movements 2 - Labs CBC & Chem 7: 03/05/25 05:40 03/05/25 05:40 Labs: Abnormal Lab Results - Last 24 Hours (Table) 03/04/25 03/04/25 03/04/25 Range/Units 06:20 06:20 12:00 RBC 3.00 L (4.40-5.60) 10*6/uL Hgb 9.0 L (13.0-17.0) g/dL Hct 27.4 L (39.6-50.0) % Plt Count 70 L (140-440) 10*3/uL Eosinophils # (0.04-0.35) 10*3/uL Sodium 135 L (137-145) mmol/L Potassium 2.8 L (3.5-5.1) mmol/L Calcium 6.9 L (8.4-10.2) mg/dL Magnesium 1.5 L (1.6-2.3) mg/dL Total Protein 4.1 L (6.3-8.2) g/dL Albumin 1.6 L (3.5-5.0) g/dL Ur Random Potassium 17.2 L (25.0-125.0) mmol/L 03/04/25 03/04/25 03/05/25 Range/Units 14:31 20:44 05:40 RBC (4.40-5.60) 10*6/uL Hgb (13.0-17.0) g/dL Hct (39.6-50.0) % Plt Count (140-440) 10*3/uL Eosinophils # (0.04-0.35) 10*3/uL Sodium 134 L 133 L (137-145) mmol/L Potassium 3.2 L 3.2 L (3.5-5.1) mmol/L Calcium 7.2 L 7.0 L (8.4-10.2) mg/dL Magnesium (1.6-2.3) mg/dL Total Protein 4.3 L (6.3-8.2) g/dL Albumin 1.7 L (3.5-5.0) g/dL Ur Random Potassium (25.0-125.0) mmol/L 03/05/25 Range/Units 05:40 RBC 3.05 L (4.40-5.60) 10*6/uL Hgb 9.2 L (13.0-17.0) g/dL Hct 28.2 L (39.6-50.0) % Plt Count 74 L (140-440) 10*3/uL Eosinophils # 0.01 L (0.04-0.35) 10*3/uL Sodium (137-145) mmol/L Potassium (3.5-5.1) mmol/L Calcium (8.4-10.2) mg/dL Magnesium (1.6-2.3) mg/dL Total Protein (6.3-8.2) g/dL Albumin (3.5-5.0) g/dL Ur Random Potassium (25.0-125.0) mmol/L
[2025-03-06 07:30] LABS: ALT 29 U/L (4-49); AST 64 U/L (17-59); African American GFR (CKD) >90 (>60 ml/min/1.73 sqM); Albumin 1.7 g/dL (3.5-5.0); Alkaline Phosphatase 138 U/L (38-126); Anion Gap 3 mmol/L; Blood Urea Nitrogen 8 mg/dL (9-20); Calcium 7.3 mg/dL (8.4-10.2); Carbon Dioxide 22 mmol/L (22-30); Chloride 110 mmol/L (98-107); Glucose 76 mg/dL (74-99); Magnesium 1.6 mg/dL (1.6-2.3); Non-African American GFR(CKD) >90 (>60 ml/min/1.73 sqM); Potassium 3.4 mmol/L (3.5-5.1); Sodium 135 mmol/L (137-145); Total Bilirubin 1.2 mg/dL (0.2-1.3); Total Protein 4.4 g/dL (6.3-8.2)
[2025-03-06] MEDS: POTASSIUM CHLORIDE ER 20 MEQ TAB.ER PO STA (09:55)
[2025-03-06] MEDS: ATORVASTATIN 40 MG TAB PO STA (09:55)
[2025-03-06] MEDS: ASPIRIN 325 MG TAB PO STA (09:55)
[2025-03-06] MEDS: MAGNESIUM SULFATE-D5W PMX 1 GM in DEXTROSE/WATER 1 100ML.BAG IVPB SCH (09:55)
[2025-03-06] MEDS: HEPARIN SODIUM,PORCINE 10,000 UNIT in SODIUM CHLORIDE 0.9% 1,000 ML IRRIGATION PRN (14:26)
[2025-03-06] MEDS: HEPARIN SODIUM,PORCINE (1 ML) 2,500 UNIT in SODIUM CHLORIDE 0.9% 250 ML IRRIGATION PRN (14:26)
[2025-03-06] MEDS: IV FLUID CONTINUATION 1,000 ML IV ONE (14:41)
[2025-03-06] MEDS: MIDAZOLAM 2 MG/2 ML VIAL IVP ONE (14:41)
[2025-03-06] MEDS: fentaNYL (PF) 50 MCG/ML 2 ML AMP IVP ONE (14:41)
[2025-03-06] MEDS: LIDOCAINE 1% INJ 10MG/ML (20 ML MDV) SQ ONE (14:42)
[2025-03-06] MEDS: VERAPAMIL 2.5 MG/ML 2 ML AMP INTRAARTER ONE (14:45)
[2025-03-06] MEDS: HEPARIN SODIUM 1,000 UN/ML (10ML VL) IV ONE (14:49)
[2025-03-06] MEDS: IOPAMIDOL-370 100ML BTL INJ ONE (14:59)
--- NOTE | 2025-03-06 15:14 | P.PN ---
Subjective Progress Note Date: 03/06/25 Subjective: Patient seen and examined at bedside. He claims that he is having upset stomach. No nausea or vomiting. Minimal abdominal pain. He is having bowel movements better small amount. 03/05/2025patient seen and examined at bedside. Had bowel movement yesterday. No other complaints. 03/06/2025 patient seen and examined at bedside. No other complaints. Cardiac catheterization planned. Pertinent positives and negatives as discussed above, a complete review of systems was performed and all other systems are negative. Vitals Signs Reviewed. General: Nontoxic, no distress, appears at stated age, chronically ill-appearing Derm: Warm, dry Cardiovascular: S1S2 reg, no murmur Lungs: CTA bilateral, no rhonchi, no rales, no accessory muscle use Abdominal: Soft, nontender to palpation, no guarding, no appreciable organomegaly Ext: No gross muscle atrophy, 2+ pitting edema, no contractures Neuro: CN II-XI grossly intact, no focal neuro deficits Psych: Alert, oriented, appropriate affect Data Reviewed Today: Pertinent Labs: potassium 3.4, BUN 8, calcium 7.3, AST 64, ALP 138, lipid panel HDL 19.9, vitamin B1 24 Imaging: No new imaging Assessment and Plan: Active: Persistent hypokalemia Severe hypokalemia Hypomagnesemia - Concerning for renal losses - Potassium did come up with significant amount of repletion but now is going down again. - Urine osmolality 5.13, random urine potassium 17.2 - Give another 40 mEq oral potassium Given 2 g magnesium sulfate - Repeat labs tomorrow - Nephrology also consulted New diagnosis of HFrEF, not in exacerbation - Unclear if ischemic versus nonischemic, catheterization planned for tomorrow - On Farxiga 5 mg daily, lisinopril 5 mg daily, metoprolol succinate 12.5 twice daily, Aldactone 25 daily Cardiology following Type II NSTEMI - No active chest pain - On aspirin 81 mg, atorvastatin 40 mg daily Thiamine deficiency Thiamine level 24 is decreased Continue thiamine 100 mg p.o. daily Severe protein calorie malnutrition Anasarca Failure to thrive - On protein supplements 3 times daily with meals - PT/OT recommending subacute rehab Normocytic anemia, stable Thrombocytopenia, stable - Likely in the setting of bone marrow hypoproliferation - Likely secondary to failure to thrive Resolved: Hypocalcemia Prerenal DENVER Lactic acidosis Metabolic acidosis DVT ppx: Subcu heparin Code status: Full code Anticipated discharge place: Subacute rehab Anticipated discharge time:1 to 2 days Gaurav Orellana MD Internal Medicine Resident, PGY1 I have seen and evaluated the patient today. Discussed with the resident and agree with the residents finding and plan as documented in the resident's note. Changes highlighted in blue font. Objective - Vital Signs Vital signs: Vital Signs Temp 98 F 03/05/25 23:25 Pulse 71 03/06/25 04:44 Resp 15 03/06/25 04:44 BP 107/63 03/06/25 04:44 Pulse Ox 98 03/06/25 04:44 FiO2 Intake & Output 03/05/25 03/05/25 03/06/25 06:59 18:59 06:59 Intake Total 540 Output Total 100 650 Balance 440 -650 Weight 78 kg 78 kg 75 kg Intake: Intake, IV Titration 300 Amount Sodium Chloride 0.9% 1, 300 000 ml In Empty Bag 1 bag @ 75 mls/hr IV .[id number] [facility] Rx#:[id number] Oral 240 Output: Urine 100 650 Other: Voiding Method Diaper Diaper Diaper # Voids 1 # Bowel Movements 1 2 - Labs CBC & Chem 7: 03/05/25 05:40 03/06/25 06:08 Labs: Abnormal Lab Results - Last 24 Hours (Table) 02/28/25 03/05/25 Range/Units 20:00 05:40 HDL Cholesterol 19.90 L (40.00-60.00) mg/dL Vitamin B1 24 L (38-122) ug/L
--- NOTE | 2025-03-06 15:55 | P.PN ---
Subjective Patient is seen for follow-up for hypokalemia and hypomagnesemia. No significant complaints. Sodium is 133 and potassium is 3.4 today. No significant complaints Scheduled for cardiac catheterization Objective - Vital Signs Vital signs: Vital Signs Temp 97.4 F L 03/06/25 15:34 Pulse 65 03/06/25 15:34 Resp 18 03/06/25 15:34 BP 115/70 03/06/25 15:34 Pulse Ox 100 03/06/25 15:34 FiO2 Intake & Output 03/05/25 03/06/25 03/06/25 18:59 06:59 18:59 Intake Total 150 Output Total 650 Balance -650 150 Weight 78 kg 75 kg Intake: IV 150 Output: Urine 650 Other: Voiding Method Diaper Diaper Diaper # Voids 1 # Bowel Movements 1 2 1 - Exam Patient is awake, comfortable, no acute distress Examination of the heart S1 and S2 Examination of the lungs bilateral breath sounds are heard Abdomen is soft nontender Examination of the lower extremities shows 1+ edema, chronic skin changes - Labs CBC & Chem 7: 03/05/25 05:40 03/06/25 06:08 Labs: Abnormal Lab Results - Last 24 Hours (Table) 03/06/25 Range/Units 06:08 Sodium 135 L (137-145) mmol/L Potassium 3.4 L (3.5-5.1) mmol/L Chloride 110 H (98-107) mmol/L BUN 8 L (9-20) mg/dL Creatinine 0.61 L (0.66-1.25) mg/dL Calcium 7.3 L (8.4-10.2) mg/dL AST 64 H (17-59) U/L Alkaline Phosphatase 138 H (38-126) U/L Total Protein 4.4 L (6.3-8.2) g/dL Albumin 1.7 L (3.5-5.0) g/dL Assessment and Plan Assessment: 1. Hypokalemia from poor intake, hypomagnesemia. Urine potassium low at 3.4 suggesting no renal potassium wasting. Potassium level initially improved with replacement but is now low again which can be due to paradoxical hypokalemia post potassium repletion. TSH normal. No evidence of alkalosis. Another cont ributing factor can be insulin production now that he is eating causing potassium shifting into the cells. 2. Hypomagnesemia from poor intake and GI losses. 3. Hypophosphatemia on admission from poor intake. Replaced. Improved. 4. Anemia. Rule out iron deficiency. 5. Cardiomyopathy with ejection fraction of 30 to 35%. 6. Severe protein calorie malnutrition. 7. Mild prerenal [place] from hypovolemia, improved with IV hydration. 8. Non-ST elevation [place] scheduled for cardiac catheterization today Plan: Replace potassium aggressively Continue with Aldactone and lisinopril Add oral magnesium supplementation Repeat labs in a.m. Encouraged increased oral intake
[2025-03-06] MEDS ORDERED: RX INFO: IV CONTRAST WAS GIVEN 1 EACH MISC MISCELLANE PRN (16:42)
--- NOTE | 2025-03-06 16:42 | P.CARDCATH ---
Date of Procedure: 03/06/25 Description of Procedure: DIAGNOSTIC CORONARY ANGIOGRAPHY and LEFT HEART CATH REPORT PROCEDURES PERFORMED: Left heart catheterization Selective coronary angiography Moderate conscious sedation 15 mins [Ultrasound assisted] Right radial access INDICATION: Dilated cardiomyopathy, new onset congestive heart failure CONSENT: I have explained the procedural steps of above-mentioned procedures in layman's terms to the patient. I discussed the risks (including but not limited to stroke, emergent vascular or cardiac surgery or ), benefits and alternative therapies for the above-mentioned procedure. I discussed the risks of sedation/analgesia and blood product administration (if indicated). The [place] ent has indicated understanding and acceptance of these risks. Conscious Sedation: Patient's ECG, heart rate, blood pressure, pulse oximetry were monitored throughout the duration of procedure under my direct supervision. 1 mg Versed and [50] mcg Fentanyl were used for induction of moderate conscious sedation. Total duration of moderate concious sedation 15 minutes. PROCEDURAL DETAILS: Patient was prepped and draped in sterile fashion. 1% lidocaine was infiltrated over the right radial artery. Right radial access was obtained via modified seldinger technique. [Ultrasound was used for radial access]. Medications: 5mg of verapamil was administed in the radial sheet. 5000 Units of Heparin was administed once the catheter reached the aortic root Wires and Catheter used: J wire was advanced under fluroscopy to get to aortic root. 5 namibian JR 4 diagnostic catheter was utilized obtain left ventricular pressure and pressure gradint across aortic valve. 5 namibian JR 4 diagnostic catheter was used to selectively engage the right coronary ostium. 5 namibian JL 3.5 diagnostic catheter was utilized to selectively engage the left coronary ostium. Angiographic images were reviewed in detail. Catheter and wire were removed. Radial sheet was flushed. The right radial sheath was removed and a TR band was placed. Patent hemostasis was achieved. The patient tolerated the procedure well. Patient was transported back to the post catheterization holding area in stable condition. TECHNICAL DETAILS Total contrast used: Isovue [60 ml] Complications: [none] Estimated Blood loss: less than 15 ml HEMODYNAMICS: Aortic Pressure: 110/70 mmHg. LV pressure: 112/2 mmHg. LVEDP 6 mmHg. There was no significant gradient across the aortic valve. SELECTIVE CORONARY ARTERIOGRAPHY: LEFT MAIN: The left main is short and large caliber vessel. It bifurcates into the LAD and circumflex. Left main appears angiographically normal. LEFT ANTERIOR DESCENDING CORONARY ARTERY: LAD is large caliber wraps around the apex. LAD appears angiographically patent. There is rise to 3 small diagonal branches appear angiographically patent. LEFT CIRCUMFLEX CORONARY ARTERY: LCx is co-dominant vessel large caliber. LCx appears angiographically patent. It gives rise to small OM1, large OM 2 and medium size OM 3 branch which appears angiographically patent. RIGHT CORONARY ARTERY: Codominant, small caliber vessel. Appears angiographically patent. Distally gives small PDA branch appears angiographically patent. IMPRESSION: Angiographically patent coronary arteries Normal LVEDP PLAN: Management for dilated nonischemic cardiomyopathy with GDMT 125 cc fluids for 4 hours Discharge home in 4 hours Follow-up in the office in 1-2 weeks. Performing Physician Nolan Grace MD, FACC, RPVI Thank you for allowing [facility] to participate in this patient's care. Feel free to reach out in case of any followup questions.
[2025-03-06] MEDS: POTASSIUM CHLORIDE ER 20 MEQ TAB.ER PO ONE (17:09)
[2025-03-06] MEDS: SODIUM CHLORIDE 0.9% 1,000 ML IV SCH (17:09)
[2025-03-06] MEDS: MAGNESIUM OXIDE 400 MG TAB PO SCH (20:18)
[2025-03-06 21:08] VITALS: TEMP 97.6
[2025-03-07 08:11] LABS: HCT 27.5 % (39.6-50.0); HGB 9.1 g/dL (13.0-17.0); MCH 31.1 pg (27.0-32.0); MCHC 33.1 g/dL (32.0-37.0); MCV 93.9 fL (80.0-97.0); Mean Platelet Volume 9.5 fL (9.5-12.2); RBC 2.93 10*6/uL (4.40-5.60); RDW 16.1 % (11.5-14.5); WBC 3.44 10*3/uL (4.50-10.00)
[2025-03-07 08:21] LABS: Platelet Count 117 10*3/uL (140-440)
[2025-03-07 08:26] LABS: ALT 39 U/L (4-49); AST 83 U/L (17-59); African American GFR (CKD) >90 (>60 ml/min/1.73 sqM); Albumin 1.8 g/dL (3.5-5.0); Alkaline Phosphatase 144 U/L (38-126); Anion Gap 2 mmol/L; Blood Urea Nitrogen 4 mg/dL (9-20); Calcium 7.4 mg/dL (8.4-10.2); Carbon Dioxide 22 mmol/L (22-30); Chloride 109 mmol/L (98-107); Glucose 78 mg/dL (74-99); Magnesium 1.7 mg/dL (1.6-2.3); Non-African American GFR(CKD) >90 (>60 ml/min/1.73 sqM); Sodium 133 mmol/L (137-145); Total Bilirubin 0.7 mg/dL (0.2-1.3); Total Protein 4.5 g/dL (6.3-8.2)
[2025-03-07 09:23] VITALS: BP 120/74; RESP 16
--- NOTE | 2025-03-07 10:44 | P.PN ---
Subjective HISTORY OF PRESENT ILLNESS: 70-year-old presented to ER after a fall. Denied losing consciousness, he was not able to get up from the ground and laid on the ground for 9 days. Never called the EMS. He was found covered in stools. There was also possible concern of black tarry stool. He does use alcohol on a regular basis however he reports that he has quit drinking since October. He also reports occasional smoking. His last echo from 2019 showed an EF of 55% with mild concentric LVH, ascending aorta 4 cm. On this admission he had echocardiogram performed which showed an EF of 30 to 35%. For this cardiology was consulted. Pertinent vitals: BP 102/67, heart rate 91 beats Admission Labs: Potassium 1.4, lactate 2.2 troponin 0.035 with flat pattern suggestive of severe dehydration. CPK 183 Iron sat is high, transferrin is low, TIBC is low, ferritin is high suggestive of anemia of chronic disease TSH 0.9, Admission EKG: Sinus rhythm with ventricular bigeminy. Progress note 03/04/2025 Patient still continues to have low potassium and magnesium. Blood pressure and heart rate are better controlled Appears to be volume optimized. Kidney function is stable. 03/05/2025 Patient examined this morning at bedside. Patient currently denies chest pain or pressure. He denies shortness of breath. He is scheduled to undergo cardiac catheterization today with Dr. Grace. 03/07/2025 Patient is status post cardiac catheterization revealing normal coronary arteries. Patient examined at bedside. Patient without complaints of chest pain or shortness of breath. Vital signs are stable PHYSICAL EXAM: VITAL SIGNS: Reviewed. GENERAL: Well-developed in no acute distress. NECK: Supple. No JVD or thyromegaly LUNGS: Respirations even and unlabored. Lungs essentially clear to auscultation bilaterally. HEART: Regular rate and rhythm. S1 and S2 heard. EXTREMITIES: Normal range of motion. No clubbing or cyanosis. Peripheral pu lses intact. No lower extremity edema ASSESSMENT: # Cardiomyopathy with a EF of 30 to 35%, nonischemic # Frequent PVCs, likely from electrolyte imbalance # Elevated troponin, type II FL, less likely related to ACS. Most likely because of rhabdomyolysis # Mild rhabdomyolysis # Anemia of chronic disease # Electrolyte imbalance with hypokalemia hypomagnesemia # Dehydration from fall and poor oral intake # Generalized weakness and mechanical fall # Failure to thrive, severe protein calorie malnutrition # History of alcohol use and smoking PLAN: Continue current cardiac medications including aspirin, Lipitor, Farxiga, lisinopril, metoprolol, and Aldactone Abstinence from alcohol recommended Patient is stable for discharge today from a cardiac standpoint No further inpatient recommendations from a cardiology perspective We will sign off. Please reconsult if needed. Nurse practitioner note has been reviewed by physician. Signing provider agrees with the documented findings, assessment, and plan of care documented by [employer]ENT as a scribe. Objective - Vital Signs Vital signs: Vital Signs Temp 97.6 F 03/07/25 04:00 Pulse 82 03/07/25 09:22 Resp 16 03/07/25 09:22 BP 120/74 03/07/25 09:22 Pulse Ox 99 03/07/25 09:22 FiO2 Intake & Output 03/06/25 03/07/25 03/07/25 18:59 06:59 18:59 Intake Total 1060 240 Output Total 250 Balance 810 240 Weight 83.5 kg Intake: IV 150 Intake, IV Titration 250 Amount Sodium Chloride 0.9% 1, 250 000 ml @ 125 mls/hr IV . Q8H [facility] Rx#:[id number] Oral 660 240 Output: Urine 250 Other: Voiding Method Diaper Diaper Diaper # Voids 1 # Bowel Movements 1 1 - Labs CBC & Chem 7: 03/07/25 07:40 03/07/25 07:40 Labs: Abnormal Lab Results - Last 24 Hours (Table) 03/07/25 03/07/25 Range/Units 07:40 07:40 WBC 3.44 L (4.50-10.00) 10*3/uL RBC 2.93 L (4.40-5.60) 10*6/uL Hgb 9.1 L (13.0-17.0) g/dL Hct 27.5 L (39.6-50.0) % Plt Count 117 L D (140-440) 10*3/uL Sodium 133 L (137-145) mmol/L Potassium 3.0 L (3.5-5.1) mmol/L Chloride 109 H (98-107) mmol/L BUN 4 L (9-20) mg/dL Creatinine 0.60 L (0.66-1.25) mg/dL Calcium 7.4 L (8.4-10.2) mg/dL AST 83 H (17-59) U/L Alkaline Phosphatase 144 H (38-126) U/L Total Protein 4.5 L (6.3-8.2) g/dL Albumin 1.8 L (3.5-5.0) g/dL
--- NOTE | 2025-03-07 10:51 | P.DS ---
Providers Date of admission: 02/28/25 19:24 Expected date of discharge: 03/07/25 Attending physician: Michael Yousif MD Consults: 03/03/25 09:53 Consult Physician Routine Consulting Provider: José Miguel Kelley Consult Reason/Comments: new HFrEF Do you want consulting provider notified?: Yes 03/04/25 08:45 Consult Physician Routine Consulting Provider: Avinash Espinoza Consult Reason/Comments: persistent hypokalemia Do you want consulting provider notified?: Yes Primary care physician: Stated None Hospital Course: Discharge diagnoses; Persistent hypokalemia Severe hypokalemia Hypomagnesemia New diagnosis of HFrEF, not in exacerbation Nonischemic cardiomyopathy Type II NSTEMI Thiamine deficiency Severe protein calorie malnutrition Anasarca Failure to thrive Normocytic anemia Thrombocytopenia Hypocalcemia Prerenal [place] Lactic acidosis Metabolic acidosis Hospital course; Patient is a 70 year old male with no significant past medical history presented to the ED after a fall. Patient reports having a fall 9 days ago. He denies losing consciousness, hitting his head, fainting. He was not able to get up and was lying on the floor for 9 days. He has his own place but lives alone. His neighbour then found him and called the EMS. EMS reported that he was found to be covered in stool. Patient states he quit drinking in October and is still smoking occasionally. Additionally, he mentions having black stools. He had an echocardiogram done in 2019 that showed EF 55-60%, mild concentric left ventricular hypertrophy, right ventricle is mildly enlarged, mild TR, ascending aorta is dilated measuring up to 4 cm. He also mentioned undergoing "surgery for hernia years ago and reportedly a suture wasn't removed and he did not get it evaluated, and now he experiences bleeding at the umbilicus if he has any trauma." Denies fever, chills, shortness of breath, cough, chest pain, palpitations, abdominal pain, nausea, vomiting, hematuria, dysuria, hemat ochezia, melena, headache, slurred speech, numbness, tingling, dizziness, lightheadedness, blurred vision, double vision. ED documentation reviewed. In the ED patient was treated with potassium chloride 40 meq PO, potassium chloride 20 meq IV, 0.9 normal saline. Patient seen and examined at bedside. He claims that he is having upset stomach. No nausea or vomiting. Minimal abdominal pain. He is having bowel movements better small amount. During hospital stay patient was treated for electrolyte abnormalities and was seen by nephrology which improved during his stay. He also was found to have new HFrEF EF 30 to 35%, nonischemic, and underwent cardiac catheterization and was found to have patent coronary arteries. Patient discharged to subacute rehab in stable condition. Continue Farxiga 5 mg daily, lisinopril 5 mg daily, metoprolol succinate 12.5 twice daily, Aldactone 25 daily, vitamins and potassium supplementation. He will need to follow-up with cardiology in 1 to 2 weeks, follow-up with PCP in 1 to 2 days, cardiology and nephrology in 1 week. Vitals Signs Reviewed. General: Nontoxic, no distress, appears at stated age, chronically ill-appearing Derm: Warm, dry Cardiovascular: S1S2 reg, no murmur Lungs: CTA bilateral, no rhonchi, no rales, no accessory muscle use Abdominal: Soft, nontender to palpation, no guarding, no appreciable organomegaly Ext: No gross muscle atrophy, 2+ pitting edema, no contractures Neuro: CN II-XI grossly intact, no focal neuro deficits Psych: Alert, oriented, appropriate affect Gaurav Orellana MD Internal Medicine Resident, PGY1 Dictation was produced using [employer] dictation software. please excuse any grammatical, word or spelling errors. A total of 38 minutes of time were spent preparing this complex discharge davie coreas. Patient was discharged on 03/07/2025 at 946. I have seen and evaluated the patient today. Discussed with the resident and agree with the residents finding and plan as documented in the resident's note. Changes highlighted in blue font. Patient Condition at Discharge: Stable Plan - Discharge Summary Discharge Rx Participant: No New Discharge Prescriptions: New Dapagliflozin Propanediol [Farxiga] 5 mg PO DAILY tab Folic Acid 1 mg PO DAILY tab Atorvastatin [Lipitor] 40 mg PO DAILY #0 tab Magnesium Oxide [Mag-Ox] 400 mg PO BID tab lisinopriL [Zestril] 5 mg PO DAILY tab Spironolactone [Aldactone] 25 mg PO DAILY tab Potassium Chloride ER [K-Dur 20] 20 meq PO BID #120 tab Multivitamins, Thera [Multivitamin (formulary)] 1 each PO DAILY tab Metoprolol Succinate (ER) [Toprol XL] 12.5 mg PO BID tab Thiamine [Vitamin B-1] 100 mg PO DAILY tab Discharge Medication List Atorvastatin [Lipitor] 40 mg PO DAILY #0 tab 03/07/25 [Rx] Dapagliflozin Propanediol [Farxiga] 5 mg PO DAILY tab 03/07/25 [Rx] Folic Acid 1 mg PO DAILY tab 03/07/25 [Rx] Magnesium Oxide [Mag-Ox] 400 mg PO BID tab 03/07/25 [Rx] Metoprolol Succinate (ER) [Toprol XL] 12.5 mg PO BID tab 03/07/25 [Rx] Multivitamins, Thera [Multivitamin (formulary)] 1 each PO DAILY tab 03/07/25 [Rx] Potassium Chloride ER [K-Dur 20] 20 meq PO BID #120 tab 03/07/25 [Rx] Spironolactone [Aldactone] 25 mg PO DAILY tab 03/07/25 [Rx] Thiamine [Vitamin B-1] 100 mg PO DAILY tab 03/07/25 [Rx] lisinopriL [Zestril] 5 mg PO DAILY tab 03/07/25 [Rx] Follow up Appointment(s)/Referral(s): Nolan Grace MD [Medical Doctor] - 1 Week Jesús Mora MD [STAFF PHYSICIAN] - 1-2 Days Avinash Espinoza DO [STAFF PHYSICIAN] - 1 Week Activity/Diet/Wound Care/Special Instructions: Follow-up with cardiology Dr Grace, and Dr Espinoza and Dr Mora in office in 1-2 weeks. Repeat BMP and Mg in 2-3 days. Discharge/Stand Alone Forms: [facility] PCPs Discharge Disposition: TRANSFER TO SNF/ECF
[2025-03-07] MEDS: POTASSIUM CHLORIDE ER 20 MEQ TAB.ER PO SCH (11:46)
[2025-03-07 12:16] VITALS: PULSE 81
--- NOTE | 2025-03-07 12:25 | P.PN ---
Subjective Patient is seen for follow-up for hypokalemia and hypomagnesemia. No significant complaints. Sodium is 133 and potassium is 3.0 today. No significant complaints cardiac catheterization did not reveal any major obstructive coronary artery disease. Objective - Vital Signs Vital signs: Vital Signs Temp 97.6 F 03/07/25 04:00 Pulse 81 03/07/25 12:14 Resp 16 03/07/25 09:22 BP 120/74 03/07/25 09:22 Pulse Ox 99 03/07/25 09:22 FiO2 Intake & Output 03/06/25 03/07/25 03/07/25 18:59 06:59 18:59 Intake Total 1060 240 Output Total 250 Balance 810 240 Weight 83.5 kg Intake: IV 150 Intake, IV Titration 250 Amount Sodium Chloride 0.9% 1, 250 000 ml @ 125 mls/hr IV . Q8H [facility] Rx#:[id number] Oral 660 240 Output: Urine 250 Other: Voiding Method Diaper Diaper Diaper # Voids 1 # Bowel Movements 1 1 - Exam Patient is awake, comfortable, no acute distress Examination of the heart S1 and S2 Examination of the lungs bilateral breath sounds are heard Abdomen is soft nontender Examination of the lower extremities shows 1+ edema, chronic skin changes - Labs CBC & Chem 7: 03/07/25 07:40 03/07/25 07:40 Labs: Abnormal Lab Results - Last 24 Hours (Table) 03/07/25 03/07/25 Range/Units 07:40 07:40 WBC 3.44 L (4.50-10.00) 10*3/uL RBC 2.93 L (4.40-5.60) 10*6/uL Hgb 9.1 L (13.0-17.0) g/dL Hct 27.5 L (39.6-50.0) % Plt Count 117 L D (140-440) 10*3/uL Sodium 133 L (137-145) mmol/L Potassium 3.0 L (3.5-5.1) mmol/L Chloride 109 H (98-107) mmol/L BUN 4 L (9-20) mg/dL Creatinine 0.60 L (0.66-1.25) mg/dL Calcium 7.4 L (8.4-10.2) mg/dL AST 83 H (17-59) U/L Alkaline Phosphatase 144 H (38-126) U/L Total Protein 4.5 L (6.3-8.2) g/dL Albumin 1.8 L (3.5-5.0) g/dL Assessment and Plan Assessment: 1. Hypokalemia from poor intake, hypomagnesemia. Urine potassium low at 3.4 suggesting no renal potassium wasting. Potassium level initially improved with replacement but is now low again which can be due to paradoxical hypokalemia post potassium repletion. TSH normal. No evidence of alkalosis. Another contributing factor can be insulin production now that he is eating causing potassium shifting into the cells. 2. Hypomagnesemia from poor intake and GI losses. 3. Hypophosphatemia on admission from poor intake. Replaced. Improved. 4. Anemia. no eye and deficiency noted. 5. Cardiomyopathy with ejection fraction of 30 to 35%. 6. Severe protein calorie malnutrition. 7. Mild prerenal [place] from hypovolemia, improved with IV hydration. 8. Non-ST elevation [place] scheduled for cardiac catheterization today Plan: Replace potassium aggressively, increase to 40 mEq 3 doses Patient should be discharged on 40 mEq daily Continue with Aldactone and lisinopril Add oral magnesium supplementation Repeat labs in a.m. Encouraged increased oral intake
== END 2025-03-07 15:35 | DRG 640 ==
LOC: EC 17:17 → 3SCARD 19:24
PROVIDERS: ADMIT Student in an Organized Health Care Education/Training Program; ATTEND Student in an Organized Health Care Education/Training Program
PROC: B2111ZZ Fluoroscopy of Multiple Coronary Arteries using Low Osmolar Contrast (ICD-10-PCS; 2025-03-06)
PROC: B2151ZZ Fluoroscopy of Left Heart using Low Osmolar Contrast (ICD-10-PCS; 2025-03-06)
PROC: 4A023N7 Measurement of Cardiac Sampling and Pressure, Left Heart, Percutaneous Approach (ICD-10-PCS; principal; 2025-03-06 12:00)
DX: E87.6 Hypokalemia (principal); E43 Unspecified severe protein-calorie malnutrition; I21.A1 Myocardial infarction type 2; I50.21 Acute systolic (congestive) heart failure; E86.0 Dehydration; M62.82 Rhabdomyolysis; D68.9 Coagulation defect, unspecified; E87.4 Mixed disorder of acid-base balance; D63.8 Anemia in other chronic diseases classified elsewhere; E83.39 Other disorders of phosphorus metabolism; E51.9 Thiamine deficiency, unspecified; N17.9 Acute kidney failure, unspecified; I51.81 Takotsubo syndrome; D69.6 Thrombocytopenia, unspecified; E86.1 Hypovolemia; E83.51 Hypocalcemia; E83.42 Hypomagnesemia; R62.7 Adult failure to thrive; Z68.20 Body mass index [BMI] 20.0-20.9, adult; F17.200 Nicotine dependence, unspecified, uncomplicated; W19.XXXA Unspecified fall, initial encounter; Z79.82 Long term (current) use of aspirin; Z79.899 Other long term (current) drug therapy
CPT/HCPCS: 36415; 70450; 71045; 80048; 80053; 80061; 81003; 82330; 82550; 82607; 82728; 82746; 83010; 83036; 83540; 83550; 83605; 83615; 83735; 83880; 83930; 83935; 84100; 84132; 84133; 84425; 84443; 84484; 85025; 85027; 85045; 85610; 85730; 93005; 93306; 93458; 96361; 96365; 96366; 96367; 96368; 96375; 99285